=== PATIENT | female | born 1965 | race American Indian/Alaskan Native ===

== ENCOUNTER 2017-06-28 10:04 | Outpatient (CLI) | payer MEDICARE, OTHER ==
--- NOTE | 2017-06-28 15:43 | Cat Scan Report ---
CT FACIAL BONES WITHOUT CONTRAST: HISTORY: Atypical facial pain. COMPARISON: None. TECHNIQUE: Helical CT images with sagittal and coronal CT reformations. FINDINGS: The facial bones are intact. There is no evidence for fracture, bone lesion or bony destruction. The paranasal sinuses are well-aerated. No significant sinus disease. The mastoid air cells and middle ear contents are within normal limits. There is very poor dentition. No periapical tooth abscess is identified. The imaged brain is unremarkable. Facial soft tissues are within normal limits.. No periapical tooth abscess is suspected. IMPRESSION: Unremarkable CT of the facial bones. No evidence for fracture or bony destruction. Poor dentition.
== END 2017-06-28 10:05 | disposition home or self-care (01) ==
LOC: CT 10:04
PROVIDERS: ATTEND Otolaryngology
DX: G50.1 Atypical facial pain (principal); K00.7 Teething syndrome; I10 Essential (primary) hypertension; J45.909 Unspecified asthma, uncomplicated; F41.9 Anxiety disorder, unspecified; F17.200 Nicotine dependence, unspecified, uncomplicated
CPT/HCPCS: 70486

== ENCOUNTER 2018-01-03 13:16 | Emergency (ER) | payer MEDICARE, OTHER ==
[2018-01-03] MEDS ORDERED: ASPIRIN PO ONE (14:03)
[2018-01-03] MEDS ORDERED: TORADOL IV ONE (15:15)
[2018-01-03] MEDS ORDERED: PEPCID IV ONE (15:15)
--- NOTE | 2018-01-03 15:19 | Emergency Department Report ---
ED Chest Pain HPI - General Chief Complaint: Chest Pain Stated Complaint: CHEST PAIN Time Seen by Provider: 01/03/18 15:06 Source: patient, EMS (ems notes not available at time of chart dictation), RN notes reviewed, old records reviewed Mode of arrival: Stretcher Limitations: No Limitations - History of Present Illness Initial Comments: Primary care Dr.: Dr. Farooq Baugh Past medical history: Chronic pain, asthma, hypertension, nerve stimulator This is a 52-year-old female who is unknown to this provider. The patient presents to the ER with the complaints of resolved anterior chest wall pain. Patient reports that she's been coughing recently, and while having a coughing spell, she experienced central chest wall pain, which was sharp in nature, and did not radiate to the back, arms or neck. There is no vomiting or diaphoresis. The patient reports crack consumption 48 hours ago for recreational purposes. She is currently on estradiol for hysterectomy which was performed remotely, and she denies recent aspirin ingestion. She otherwise denies DVT, pulmonary embolus risk factors. She reports shortness of breath while coughing, otherwise does not have shortness of breath at this time. No recent cardiac risk stratification that she is aware of. She thinks her pain started at 10:00 in the morning. She's been pain free for hours. MD Complaint: chest pain -: Sudden Onset: other (see history of present illness) Pain Location: other (anterior chest wall) Pain Radiation: none Severity scale (0 -10): 7 Consistency: now resolved Improves With: rest Worsens With: palpation Other Symptoms: cough Treatments Prior to Arrival: other (given nitroglycerin, aspirin by EMS prior to arrival) - Related Data On Oral Contraceptives: Yes Home Medications Medication Instructions Recorded Confirmed Last Taken Amlodipine Besylate [Norvasc] 10 mg PO DAILY 03/02/13 05/07/14 05/06/14 Cyclobenzaprine [Flexeril] 10 mg PO TID PRN 03/02/13 05/07/14 05/06/14 Estrogens, Conjugated [Premarin] 1.25 mg PO QDAY 03/02/13 05/07/14 05/06/14 Loratadine [Claritin RAPDIS] 10 mg PO QDAY 03/02/13 05/07/14 05/06/14 Albuterol Sulfate [Proventil HFA] 1 puff IH DAILY 04/29/14 05/07/14 05/06/14 Citalopram [celeXA] 10 mg PO HS 04/29/14 05/07/14 05/06/14 Fluticasone/Salmeterol [Advair 1 puff IH BID 04/29/14 05/07/14 05/06/14 Diskus 100-50 mcg] lamoTRIgine [Lamotrigine ER] 100 mg PO DAILY 04/29/14 05/07/14 05/06/14 Previous Rx's Medication Instructions Recorded Last Taken Type traMADol [Ultram 50 MG tab] 50 mg PO Q4HR PRN #20 tablet 04/06/16 Unknown Rx Aspirin [Aspirin BABY CHEW TAB] 81 mg PO QDAY #30 tab.chew 01/03/18 Unknown Rx Allergies Allergy/AdvReac Type Severity Reaction Status Date / Time acetaminophen [From Percocet] Allergy Rash Verified 03/02/13 10:43 adhesive tape Allergy Rash Unverified 06/28/17 10:05 Latex, Natural Rubber Allergy Rash Verified 03/02/13 10:43 oxycodone HCl [From Percocet] Allergy Rash Verified 03/02/13 10:43 Heart Score - HEART Score History: Slightly suspicious EKG: Non-specific Age: 45-65 Risk factors: 1-2 risk factors Troponin: < normal limit HEART Score: 3 - Critical Actions Critical Actions: 0-3 pts:0.9-1.7%risk of adverse cardiac event.Candidate for discharge ED Review of Systems ROS: Stated complaint: CHEST PAIN Other details as noted in HPI Comment: All other systems reviewed and negative Constitutional: denies: fever, malaise Eyes: denies: vision change ENT: congestion Respiratory: cough, shortness of breath. denies: wheezing Cardiovascular: chest pain. denies: syncope Endocrine: no symptoms reported Gastrointestinal: denies: abdominal pain, nausea, vomiting Genitourinary: denies: discharge Musculoskeletal: back pain (endorses chronic back pain) Neurological: denies: paresthesias Psychiatric: anxiety ED Past Medical Hx - Past Medical History Hx Hypertension: Yes Hx Sickle Cell Disease: Yes (trait) Hx Psychiatric Treatment: Yes Hx Asthma: Yes Additional medical history: chronic pain - Surgical History Additional Surgical History: left buttick, nerve stimulator implant. L4-5, and S1 fusion - Social History Smoking Status: Current Every Day Smoker - Medications Home Medications: Home Medications Medication Instructions Recorded Confirmed Last Taken Type Amlodipine Besylate [Norvasc] 10 mg PO DAILY 03/02/13 05/07/14 05/06/14 History Cyclobenzaprine [Flexeril] 10 mg PO TID PRN 03/02/13 05/07/14 05/06/14 History Estrogens, Conjugated [Premarin] 1.25 mg PO QDAY 03/02/13 05/07/14 05/06/14 History Loratadine [Claritin RAPDIS] 10 mg PO QDAY 03/02/13 05/07/14 05/06/14 History Albuterol Sulfate [Proventil HFA] 1 puff IH DAILY 04/29/14 05/07/14 05/06/14 History Citalopram [celeXA] 10 mg PO HS 04/29/14 05/07/14 05/06/14 History Fluticasone/Salmeterol [Advair 1 puff IH BID 04/29/14 05/07/14 05/06/14 History Diskus 100-50 mcg] lamoTRIgine [Lamotrigine ER] 100 mg PO DAILY 04/29/14 05/07/14 05/06/14 History traMADol [Ultram 50 MG tab] 50 mg PO Q4HR PRN #20 tablet 04/06/16 Unknown Rx Aspirin [Aspirin BABY CHEW TAB] 81 mg PO QDAY #30 tab.chew 01/03/18 Unknown Rx ED Physical Exam - General Limitations: No Limitations General appearance: alert, in no apparent distress - Head Head exam: Present: atraumatic, normocephalic - Eye Eye exam: Present: normal appearance, EOMI. Absent: nystagmus - ENT ENT exam: Present: normal exam, normal orophraynx, mucous membranes moist - Neck Neck exam: Present: normal inspection, full ROM - Respiratory Respiratory exam: Present: normal lung sounds bilaterally, chest wall tenderness. Absent: respiratory distress - Cardiovascular Cardiovascular Exam: Present: regular rate, normal rhythm, normal heart sounds. Absent: bradycardia, tachycardia, irregular rhythm, systolic murmur, diastolic murmur, rubs, gallop - GI/Abdominal GI/Abdominal exam: Present: soft, normal bowel sounds. Absent: distended, tenderness, guarding, rebound, rigid, pulsatile mass - Extremities Exam Extremities exam: Present: normal inspection, full ROM, normal capillary refill , other (there is no palpable cord. There is a negative Homans sign.). Absent : tenderness, pedal edema, joint swelling, calf tenderness - Back Exam Back exam: Present: normal inspection, full ROM. Absent: tenderness, CVA tenderness (R), paraspinal tenderness, vertebral tenderness - Neurological Exam Neurological exam: Present: alert, oriented X3, CN II-XII intact, normal gait, other (Extraocular movements intact. Tongue midline. No facial droop. Facial sensation intact to light touch in the V1, V2, V3 distribution bilaterally. 5 and 5 strength in 4 extremities.. Sensation is intact to light touch in 4 extremities.). Absent: motor sensory deficit - Psychiatric Psychiatric exam: Present: anxious - Skin Skin exam: Present: warm, dry, intact, normal color. Absent: rash ED Course Vital Signs 01/03/18 01/03/18 01/03/18 14:20 14:30 14:33 Temperature 98.7 F Pulse Rate 76 75 79 Respiratory 16 16 13 Rate Blood Pressure 85/48 Blood Pressure 91/66 97/66 [Left] O2 Sat by Pulse 100 100 100 Oximetry 01/03/18 01/03/18 01/03/18 14:36 14:40 14:48 Temperature Pulse Rate 82 81 Respiratory 15 14 13 Rate Blood Pressure 85/48 95/65 Blood Pressure [Left] O2 Sat by Pulse 99 100 Oximetry 01/03/18 01/03/18 01/03/18 15:00 15:30 16:00 Temperature Pulse Rate 78 93 H 91 H Respiratory 13 30 H 19 Rate Blood Pressure 98/66 98/66 107/67 Blood Pressure [Left] O2 Sat by Pulse 100 99 100 Oximetry 01/03/18 01/03/18 16:30 17:04 Temperature Pulse Rate 92 H 91 H Respiratory 20 22 Rate Blood Pressure 106/73 95/67 Blood Pressure [Left] O2 Sat by Pulse 100 100 Oximetry - Reevaluation(s) Reevaluation #1: 01/03/18 18:02 Patient is resting comfortably, no distress, patient will be discharged at this time, she can follow up with outpatient cardiology to complete her cardiac risk stratification. CARLOS ENRIQUE score - Carlos Enrique Score Age > 65: (0) No Aspirin use within the Past 7 Days: (0) No 3 or more CAD Risk Factors: (0) No 2 or more Angina events in past 24 hrs: (0) No Known CAD with more than 50% Stenosis: (0) No Elevated Cardiac Markers: (0) No ST Deviation Greater than 0.5mm: (0) No CARLOS ENRIQUE Score: 0 ED Medical Decision Making - Lab Data Result diagrams: 01/03/18 15:16 01/03/18 15:16 Vital Signs 01/03/18 01/03/18 01/03/18 14:20 14:30 14:33 Temperature 98.7 F Pulse Rate 76 75 79 Respiratory 16 16 13 Rate Blood Pressure 85/48 Blood Pressure 91/66 97/66 [Left] O2 Sat by Pulse 100 100 100 Oximetry 01/03/18 01/03/18 01/03/18 14:36 14:40 14:48 Temperature Pulse Rate 82 81 Respiratory 15 14 13 Rate Blood Pressure 85/48 95/65 Blood Pressure [Left] O2 Sat by Pulse 99 100 Oximetry 01/03/18 01/03/18 01/03/18 15:00 15:30 16:00 Temperature Pulse Rate 78 93 H 91 H Respiratory 13 30 H 19 Rate Blood Pressure 98/66 98/66 107/67 Blood Pressure [Left] O2 Sat by Pulse 100 99 100 Oximetry 01/03/18 01/03/18 16:30 17:04 Temperature Pulse Rate 92 H 91 H Respiratory 20 22 Rate Blood Pressure 106/73 95/67 Blood Pressure [Left] O2 Sat by Pulse 100 100 Oximetry Lab Results 01/03/18 01/03/18 01/03/18 Range/Units 15:16 15:16 15:20 WBC 6.6 (4.5-11.0) K/mm3 RBC 4.44 (3.65-5.03) M/mm3 Hgb 13.0 (10.1-14.3) gm/dl Hct 38.5 (30.3-42.9) % MCV 87 (79-97) fl MCH 29 (28-32) pg MCHC 34 (30-34) % RDW 13.8 (13.2-15.2) % Plt Count 208 (140-440) K/mm3 Lymph % (Auto) 22.9 (13.4-35.0) % Cache % (Auto) 8.6 H (0.0-7.3) % Eos % (Auto) 0.2 (0.0-4.3) % Baso % (Auto) 0.4 (0.0-1.8) % Lymph # 1.5 (1.2-5.4) K/mm3 Cache # 0.6 (0.0-0.8) K/mm3 Eos # 0.0 (0.0-0.4) K/mm3 Baso # 0.0 (0.0-0.1) K/mm3 Seg Neutrophils % 67.9 (40.0-70.0) % Seg Neutrophils # 4.5 (1.8-7.7) K/mm3 PT 13.1 (12.2-14.9) Sec. INR 0.95 (0.87-1.13) APTT 32.9 (24.2-36.6) Sec. D-Dimer 199.87 (0-234) ng/mlDDU Magnesium (1.7-2.3) mg/dL Total Creatine Kinase (30-135) units/L Troponin T < 0.010 (0.00-0.029) ng/mL Salicylates (2.8-20.0) mg/dL Acetaminophen (10.0-30.0) ug/mL 01/03/18 01/03/18 01/03/18 Range/Units 15:20 15:20 15:20 WBC (4.5-11.0) K/mm3 RBC (3.65-5.03) M/mm3 Hgb (10.1-14.3) gm/dl Hct (30.3-42.9) % MCV (79-97) fl MCH (28-32) pg MCHC (30-34) % RDW (13.2-15.2) % Plt Count (140-440) K/mm3 Lymph % (Auto) (13.4-35.0) % Cache % (Auto) (0.0-7.3) % Eos % (Auto) (0.0-4.3) % Baso % (Auto) (0.0-1.8) % Lymph # (1.2-5.4) K/mm3 Cache # (0.0-0.8) K/mm3 Eos # (0.0-0.4) K/mm3 Baso # (0.0-0.1) K/mm3 Seg Neutrophils % (40.0-70.0) % Seg Neutrophils # (1.8-7.7) K/mm3 PT (12.2-14.9) Sec. INR (0.87-1.13) APTT (24.2-36.6) Sec. D-Dimer (0-234) ng/mlDDU Magnesium 1.90 (1.7-2.3) mg/dL Total Creatine Kinase 70 (30-135) units/L Troponin T (0.00-0.029) ng/mL Salicylates < 0.3 L (2.8-20.0) mg/dL Acetaminophen < 5.0 L (10.0-30.0) ug/mL - EKG Data -: EKG Interpreted by Me - EKG Data When compared to previous EKG there are: previous EKG unavailable 01/03/18 17:28 EKG interpretation is limited by artifact from sacral stimulator for pain 79 bpm, sinus, normal axis, QTC 445 ms, not a STEMI. Repeat EKG appears to be unchanged. - Radiology Data Radiology results: image reviewed interpreted by me: X-ray of the chest, interpreted by me, no acute disease - Medical Decision Making Differential diagnosis, including but not limited to: Bronchitis, pneumonia, costochondritis, acute coronary syndrome, pulmonary embolus, anxiety Assessment and plan: 52-year-old female, low risk by well's criteria with a negative d-dimer, on estradiol, otherwise does not have pulmonary embolus or DVT risk factors, with a normal chest x-ray, unchanged EKG 2, reproducible chest wall pain, not having chest pain currently, negative troponin 1, low risk by CARLOS ENRIQUE score, low risk by heart score, in no distress. Patient is at low risk for major adverse cardiac event. She reports she is reliable to follow up with an outpatient primary care doctor or river crossing supervisor to complete her acute coronary syndrome risk stratification. Her pain was improved after nonnarcotic medication. She reports recreational crack ingestion a few days ago, however she is clinically sober at this time, and his serum toxicology screen was negative for Tylenol or aspirin toxicity. Critical care attestation.: If time is entered above; I have spent that time in minutes in the direct care of this critically ill patient, excluding procedure time. ED Disposition Clinical Impression: Chest wall pain Disposition: DC-01 TO HOME OR SELFCARE Is pt being admited?: No Does the pt Need Aspirin: No Condition: Stable Instructions: Chest Pain (ED), Costochondritis (ED) Additional Instructions: Continue outpatient medications. Follow up with the listed cardiology groups or your own private river crossing supervisor within the next 3 days. Avoid consumption of crack, cocaine, recreational drugs are dangerous and bed for the patient's health. Return to the ER right away with new pain, worsening pain, migration of pain, fevers, chills, lethargy, irritability, projectile vomiting, change in mental status, confusion, inability to tolerate liquid feeds. Prescriptions: Aspirin [Aspirin BABY CHEW TAB] 81 mg PO QDAY #30 tab.chew Referrals: PRIMARY CARE, [Primary Care Provider] - 3-5 Days [facility] [Provider Group] - 3-5 Days [facility] [Provider Group] - 3-5 Days
[2018-01-03 15:31] LABS: Basophils % (Auto) 0.4 % (0.0-1.8); Eosinophils % (Auto) 0.2 % (0.0-4.3); Hematocrit 38.5 % (30.3-42.9); Lymphocytes # (Auto) 1.5 K/mm3 (1.2-5.4); Lymphocytes % (Auto) 22.9 % (13.4-35.0); Mean Corpuscular HGB Conc 34 % (30-34); Mean Corpuscular Hemoglobin 29 pg (28-32); Mean Corpuscular Volume 87 fl (79-97); Monocytes # (Auto) 0.6 K/mm3 (0.0-0.8); Monocytes % (Auto) 8.6 % (0.0-7.3); Platelet Count 208 K/mm3 (140-440); Red Blood Count 4.44 M/mm3 (3.65-5.03); Red Cell Distribution Width 13.8 % (13.2-15.2)
[2018-01-03 15:41] LABS: INR 0.95 (0.87-1.13)
[2018-01-03 15:42] LABS: Partial Thromboplastin Time 32.9 Sec. (24.2-36.6)
[2018-01-03 17:16] VITALS: BP 95/67
[2018-01-03 17:36] LABS: BUN/Creatinine Ratio 15; Blood Urea Nitrogen 9 mg/dL (7-17); Calcium 8.9 mg/dL (8.4-10.2); Hemolysis Index 9
--- NOTE | 2018-01-03 18:01 | XRay Report ---
FINAL REPORT PROCEDURE: XR CHEST ROUTINE 2V TECHNIQUE: PA and lateral chest radiographs were obtained. CPT 52486 HISTORY: Chest pain. COMPARISON: No prior studies are available for comparison. FINDINGS: Heart: Normal. Mediastinum/Vessels: Normal. Lungs/Pleural space: Normal. Bony thorax: No acute osseous abnormality. Intrathecal leads with tips at the T7-8 level. Other: IMPRESSION: No radiographic evidence of acute cardiopulmonary disease..
== END 2018-01-03 18:03 | disposition home or self-care (01) ==
LOC: ED 13:16
DX: R07.89 Other chest pain (principal); I10 Essential (primary) hypertension; J45.909 Unspecified asthma, uncomplicated; F17.200 Nicotine dependence, unspecified, uncomplicated; Z88.6 Allergy status to analgesic agent; Z91.040 Latex allergy status; Z91.048 Other nonmedicinal substance allergy status
CPT/HCPCS: 36415; 71046; 80048; 82550; 83735; 84484; 85025; 85379; 85610; 85730; 93005; 93010; 96374; 96375; 99285; G0480; J1885; 80320

== ENCOUNTER 2019-06-04 16:59 | Emergency (ER) | payer MEDICARE, OTHER ==
--- NOTE | 2019-06-04 17:29 | Emergency Department Report ---
Blank Doc - Documentation Documentation: This is a 53-year-old female that presents with manic bipolar. Stated has been out of her medications for 4 months. Stated is possible for SI. This initial assessment/diagnostic orders/clinical plan/treatment(s) is/are subject to change based on patient's health status, clinical progression and re- assessment by fellow clinical providers in the ED. Further treatment and workup at subsequent clinical providers discretion. Patient/guardians urged not to elope from the ED as their condition may be serious if not clinically assessed and managed. Initial orders include: 1- Patient sent to MAIN ED for further evaluation and treatment 2- director of market intelligence was notified to have patient be brought back [facility]. 3- RN was notified to keep patient as close range and observation until room available 4- Patient presents with substantial risk of imminent harm to self, appears to be so unable to care for his/her own physical health and safety as to create an imminently life-endangering crisis, and has committed/expressed life endangering crisis to self. Due to this and other complaints, patient is put on psych hold.
[2019-06-04 18:09] LABS: Amphetamine Screen,Urine PRESUMPTIVE NEGATIVE; Bacteria,Urine 1+ /HPF (Negative); Benzodiazepines Screen,Urine PRESUMPTIVE NEGATIVE; Bilirubin,Urine NEG (Negative); Blood,Urine NEG (Negative); Cannabinoid Screen,Urine PRESUMPTIVE NEGATIVE; Cocaine Screen,Urine PRESUMPTIVE NEGATIVE; Color,Urine Yellow (Yellow); Methadone Screen,Urine PRESUMPTIVE NEGATIVE; Opiate Screen,Urine PRESUMPTIVE NEGATIVE; Protein,Urine <15 mg/dL mg/dL (Negative)
[2019-06-04 18:28] LABS: Basophils % (Auto) 0.5 % (0.0-1.8); Eosinophils # (Auto) 0.1 K/mm3 (0.0-0.4); Eosinophils % (Auto) 1.5 % (0.0-4.3); Hematocrit 39.4 % (30.3-42.9); Hemoglobin 12.9 gm/dl (10.1-14.3); Lymphocytes # (Auto) 1.8 K/mm3 (1.2-5.4); Lymphocytes % (Auto) 41.6 % (13.4-35.0); Mean Corpuscular HGB Conc 33 % (30-34); Mean Corpuscular Volume 89 fl (79-97); Monocytes # (Auto) 0.2 K/mm3 (0.0-0.8); Monocytes % (Auto) 5.1 % (0.0-7.3); Platelet Count 195 K/mm3 (140-440); Red Blood Count 4.43 M/mm3 (3.65-5.03); Red Cell Distribution Width 13.8 % (13.2-15.2)
[2019-06-04 18:48] LABS: Alanine Aminotransferase 12 units/L (7-56); Albumin 4.4 g/dL (3.9-5); BUN/Creatinine Ratio 14; Blood Urea Nitrogen 10 mg/dL (7-17); Calcium 9.1 mg/dL (8.4-10.2); Hemolysis Index 14
--- NOTE | 2019-06-04 20:06 | Emergency Department Report ---
ED General Adult HPI - General Chief complaint: Psych Stated complaint: MH EVAL Time Seen by Provider: 06/04/19 17:28 Source: patient Mode of arrival: Ambulatory Limitations: No Limitations - History of Present Illness Initial comments: Patient presents to the emergency department the chief complaint of having a manic state. Patient states she has a history of bipolar and has not taken meds in over 2-1/2 months. Patient states she feels very restless and anxious. Patient also complains of having thoughts of hurting other people but denies wanting to harm herself. Patient has no other complaints. -: unknown Consistency: constant Improves with: none Worsens with: none Associated Symptoms: denies other symptoms Treatments Prior to Arrival: none - Related Data Home Medications Medication Instructions Recorded Confirmed Last Taken Amlodipine Besylate [Norvasc] 10 mg PO DAILY 03/02/13 05/07/14 05/06/14 Cyclobenzaprine [Flexeril] 10 mg PO TID PRN 03/02/13 05/07/14 05/06/14 Estrogens, Conjugated (Nf) 1.25 mg PO QDAY 03/02/13 05/07/14 05/06/14 [Premarin] Loratadine [Claritin RAPDIS] 10 mg PO QDAY 03/02/13 05/07/14 05/06/14 Albuterol Sulfate [Proventil HFA] 1 puff IH DAILY 04/29/14 05/07/14 05/06/14 Citalopram [celeXA] 10 mg PO HS 04/29/14 05/07/14 05/06/14 Fluticasone/Salmeterol [Advair 1 puff IH BID 04/29/14 05/07/14 05/06/14 Diskus 100-50 mcg] lamoTRIgine [Lamotrigine ER] 100 mg PO DAILY 04/29/14 05/07/14 05/06/14 Previous Rx's Medication Instructions Recorded Last Taken Type traMADoL [Ultram 50 MG tab] 50 mg PO Q4HR PRN #20 tablet 04/06/16 Unknown Rx Aspirin [Aspirin BABY CHEW TAB] 81 mg PO QDAY #30 tab.chew 01/03/18 Unknown Rx Allergies Allergy/AdvReac Type Severity Reaction Status Date / Time adhesive tape Allergy Rash Unverified 06/28/17 10:05 Latex, Natural Rubber Allergy Rash Verified 03/02/13 10:43 oxycodone HCl [From Percocet] Allergy Rash Verified 03/02/13 10:43 ED Review of Systems ROS: Stated complaint: MH EVAL Other details as noted in HPI Constitutional: denies: chills, fever Eyes: denies: eye pain, eye discharge, vision change ENT: denies: ear pain, throat pain Respiratory: denies: cough, shortness of breath, wheezing Cardiovascular: denies: chest pain, palpitations Endocrine: no symptoms reported Gastrointestinal: denies: abdominal pain, nausea, diarrhea Genitourinary: denies: urgency, dysuria, discharge Musculoskeletal: denies: back pain, joint swelling, arthralgia Skin: denies: rash, lesions Neurological: denies: headache, weakness, paresthesias Psychiatric: suicidal thoughts. denies: anxiety, depression, auditory hallucinations, visual hallucinations, homicidal thoughts Hematological/Lymphatic: denies: easy bleeding, easy bruising ED Past Medical Hx - Past Medical History Previous Medical History?: Yes Hx Hypertension: Yes Hx Sickle Cell Disease: Yes (trait) Hx Psychiatric Treatment: Yes (bipolar/schizo) Hx Asthma: Yes Additional medical history: chronic pain - Surgical History Past Surgical History?: Yes Additional Surgical History: left buttick, nerve stimulator implant. L4-5, and S1 fusion - Social History Smoking Status: Current Every Day Smoker Substance Use Type: Alcohol, Cocaine - Medications Home Medications: Home Medications Medication Instructions Recorded Confirmed Last Taken Type Amlodipine Besylate [Norvasc] 10 mg PO DAILY 03/02/13 05/07/14 05/06/14 History Cyclobenzaprine [Flexeril] 10 mg PO TID PRN 03/02/13 05/07/14 05/06/14 History Estrogens, Conjugated (Nf) 1.25 mg PO QDAY 03/02/13 05/07/14 05/06/14 History [Premarin] Loratadine [Claritin RAPDIS] 10 mg PO QDAY 03/02/13 05/07/14 05/06/14 History Albuterol Sulfate [Proventil HFA] 1 puff IH DAILY 04/29/14 05/07/14 05/06/14 History Citalopram [celeXA] 10 mg PO HS 04/29/14 05/07/14 05/06/14 History Fluticasone/Salmeterol [Advair 1 puff IH BID 04/29/14 05/07/14 05/06/14 History Diskus 100-50 mcg] lamoTRIgine [Lamotrigine ER] 100 mg PO DAILY 04/29/14 05/07/14 05/06/14 History traMADoL [Ultram 50 MG tab] 50 mg PO Q4HR PRN #20 tablet 04/06/16 Unknown Rx Aspirin [Aspirin BABY CHEW TAB] 81 mg PO QDAY #30 tab.chew 01/03/18 Unknown Rx ED Physical Exam - General Limitations: No Limitations General appearance: alert, in no apparent distress, anxious, other (the patient appears to be in a manic state; patient's hyperverbal and I able to sit still. ) - Head Head exam: Present: atraumatic, normocephalic - Eye Eye exam: Present: normal appearance - ENT ENT exam: Present: mucous membranes moist - Neck Neck exam: Present: normal inspection - Respiratory Respiratory exam: Present: normal lung sounds bilaterally. Absent: respiratory distress - Cardiovascular Cardiovascular Exam: Present: regular rate, normal rhythm. Absent: systolic murmur, diastolic murmur, rubs, gallop - GI/Abdominal GI/Abdominal exam: Present: soft, normal bowel sounds. Absent: distended, tenderness - Extremities Exam Extremities exam: Present: normal inspection - Back Exam Back exam: Present: normal inspection - Neurological Exam Neurological exam: Present: alert, oriented X3, CN II-XII intact. Absent: motor sensory deficit - Psychiatric Psychiatric exam: Present: normal affect, normal mood, homicidal ideation. Absent: suicidal ideation - Skin Skin exam: Present: warm, dry, intact, normal color. Absent: rash ED Course Vital Signs 06/04/19 06/04/19 06/05/19 17:27 20:25 01:05 Temperature 98.5 F 97.9 F 97.5 F L Pulse Rate 109 H 102 H 100 H Respiratory 18 18 18 Rate Blood Pressure 111/74 Blood Pressure 97/59 103/69 [Right] O2 Sat by Pulse 100 100 100 Oximetry ED Medical Decision Making - Lab Data Result diagrams: 06/04/19 17:51 06/04/19 17:51 Lab Results 06/04/19 06/04/19 06/04/19 Range/Units 17:51 17:51 17:51 WBC 4.4 L (4.5-11.0) K/mm3 RBC 4.43 (3.65-5.03) M/mm3 Hgb 12.9 (10.1-14.3) gm/dl Hct 39.4 (30.3-42.9) % MCV 89 (79-97) fl MCH 29 (28-32) pg MCHC 33 (30-34) % RDW 13.8 (13.2-15.2) % Plt Count 195 (140-440) K/mm3 Lymph % (Auto) 41.6 H (13.4-35.0) % [place] % (Auto) 5.1 (0.0-7.3) % Eos % (Auto) 1.5 (0.0-4.3) % Baso % (Auto) 0.5 (0.0-1.8) % Lymph # 1.8 (1.2-5.4) K/mm3 [place] # 0.2 (0.0-0.8) K/mm3 Eos # 0.1 (0.0-0.4) K/mm3 Baso # 0.0 (0.0-0.1) K/mm3 Seg Neutrophils % 51.3 (40.0-70.0) % Seg Neutrophils # 2.2 (1.8-7.7) K/mm3 Sodium 143 (137-145) mmol/L Potassium 3.6 (3.6-5.0) mmol/L Chloride 102.9 (98-107) mmol/L Carbon Dioxide 24 (22-30) mmol/L Anion Gap 20 mmol/L BUN 10 (7-17) mg/dL Creatinine 0.7 (0.7-1.2) mg/dL Estimated GFR > 60 ml/min BUN/Creatinine Ratio 14 % Glucose 117 H (65-100) mg/dL Calcium 9.1 (8.4-10.2) mg/dL Total Bilirubin 0.20 (0.1-1.2) mg/dL AST 13 (5-40) units/L ALT 12 (7-56) units/L Alkaline Phosphatase 59 (35-129) units/L Total Protein 7.1 (6.3-8.2) g/dL Albumin 4.4 (3.9-5) g/dL Albumin/Globulin Ratio 1.6 % Urine Color (Yellow) Urine Turbidity (Clear) Urine pH (5.0-7.0) Ur Specific [place] (1.003-1.030) Urine Protein (Negative) mg/dL Urine Glucose (UA) (Negative) mg/dL Urine Ketones (Negative) mg/dL Urine Blood (Negative) Urine Nitrite (Negative) Urine Bilirubin (Negative) Urine Urobilinogen (<2.0) mg/dL Ur Leukocyte Esterase (Negative) Urine WBC (Auto) (0.0-6.0) /HPF Urine RBC (Auto) (0.0-6.0) /HPF U Epithel Cells (Auto) (0-13.0) /HPF Urine Bacteria (Auto) (Negative) /HPF Salicylates < 0.3 L (2.8-20.0) mg/dL Urine Opiates Screen Urine Methadone Screen Acetaminophen (10.0-30.0) ug/mL Ur Barbiturates Screen Ur Phencyclidine Scrn Ur Amphetamines Screen U Benzodiazepines Scrn Urine Cocaine Screen U Marijuana (THC) Screen Drugs of Abuse Note Plasma/Serum Alcohol (0-0.07) % 06/04/19 06/04/19 06/04/19 Range/Units 17:51 17:51 Unknown WBC (4.5-11.0) K/mm3 RBC (3.65-5.03) M/mm3 Hgb (10.1-14.3) gm/dl Hct (30.3-42.9) % MCV (79-97) fl MCH (28-32) pg MCHC (30-34) % RDW (13.2-15.2) % Plt Count (140-440) K/mm3 Lymph % (Auto) (13.4-35.0) % [place] % (Auto) (0.0-7.3) % Eos % (Auto) (0.0-4.3) % Baso % (Auto) (0.0-1.8) % Lymph # (1.2-5.4) K/mm3 [place] # (0.0-0.8) K/mm3 Eos # (0.0-0.4) K/mm3 Baso # (0.0-0.1) K/mm3 Seg Neutrophils % (40.0-70.0) % Seg Neutrophils # (1.8-7.7) K/mm3 Sodium (137-145) mmol/L Potassium (3.6-5.0) mmol/L Chloride (98-107) mmol/L Carbon Dioxide (22-30) mmol/L Anion Gap mmol/L BUN (7-17) mg/dL Creatinine (0.7-1.2) mg/dL Estimated GFR ml/min BUN/Creatinine Ratio % Glucose (65-100) mg/dL Calcium (8.4-10.2) mg/dL Total Bilirubin (0.1-1.2) mg/dL AST (5-40) units/L ALT (7-56) units/L Alkaline Phosphatase (35-129) units/L Total Protein (6.3-8.2) g/dL Albumin (3.9-5) g/dL Albumin/Globulin Ratio % Urine Color Yellow (Yellow) Urine Turbidity Clear (Clear) Urine pH 6.0 (5.0-7.0) Ur Specific [place] 1.017 (1.003-1.030) Urine Protein <15 mg/dl (Negative) mg/dL Urine Glucose (UA) Neg (Negative) mg/dL Urine Ketones Neg (Negative) mg/dL Urine Blood Neg (Negative) Urine Nitrite Neg (Negative) Urine Bilirubin Neg (Negative) Urine Urobilinogen 2.0 (<2.0) mg/dL Ur Leukocyte Esterase Neg (Negative) Urine WBC (Auto) 1.0 (0.0-6.0) /HPF Urine RBC (Auto) 4.0 (0.0-6.0) /HPF U Epithel Cells (Auto) 6.0 (0-13.0) /HPF Urine Bacteria (Auto) 1+ (Negative) /HPF Salicylates (2.8-20.0) mg/dL Urine Opiates Screen Urine Methadone Screen Acetaminophen 9.1 L (10.0-30.0) ug/mL Ur Barbiturates Screen Ur Phencyclidine Scrn Ur Amphetamines Screen U Benzodiazepines Scrn Urine Cocaine Screen U Marijuana (THC) Screen Drugs of Abuse Note Plasma/Serum Alcohol < 0.01 (0-0.07) % 06/04/19 Range/Units Unknown WBC (4.5-11.0) K/mm3 RBC (3.65-5.03) M/mm3 Hgb (10.1-14.3) gm/dl Hct (30.3-42.9) % MCV (79-97) fl MCH (28-32) pg MCHC (30-34) % RDW (13.2-15.2) % Plt Count (140-440) K/mm3 Lymph % (Auto) (13.4-35.0) % [place] % (Auto) (0.0-7.3) % Eos % (Auto) (0.0-4.3) % Baso % (Auto) (0.0-1.8) % Lymph # (1.2-5.4) K/mm3 [place] # (0.0-0.8) K/mm3 Eos # (0.0-0.4) K/mm3 Baso # (0.0-0.1) K/mm3 Seg Neutrophils % (40.0-70.0) % Seg Neutrophils # (1.8-7.7) K/mm3 Sodium (137-145) mmol/L Potassium (3.6-5.0) mmol/L Chloride (98-107) mmol/L Carbon Dioxide (22-30) mmol/L Anion Gap mmol/L BUN (7-17) mg/dL Creatinine (0.7-1.2) mg/dL Estimated GFR ml/min BUN/Creatinine Ratio % Glucose (65-100) mg/dL Calcium (8.4-10.2) mg/dL Total Bilirubin (0.1-1.2) mg/dL AST (5-40) units/L ALT (7-56) units/L Alkaline Phosphatase (35-129) units/L Total Protein (6.3-8.2) g/dL Albumin (3.9-5) g/dL Albumin/Globulin Ratio % Urine Color (Yellow) Urine Turbidity (Clear) Urine pH (5.0-7.0) Ur Specific [place] (1.003-1.030) Urine Protein (Negative) mg/dL Urine Glucose (UA) (Negative) mg/dL Urine Ketones (Negative) mg/dL Urine Blood (Negative) Urine Nitrite (Negative) Urine Bilirubin (Negative) Urine Urobilinogen (<2.0) mg/dL Ur Leukocyte Esterase (Negative) Urine WBC (Auto) (0.0-6.0) /HPF Urine RBC (Auto) (0.0-6.0) /HPF U Epithel Cells (Auto) (0-13.0) /HPF Urine Bacteria (Auto) (Negative) /HPF Salicylates (2.8-20.0) mg/dL Urine Opiates Screen Presumptive negative Urine Methadone Screen Presumptive negative Acetaminophen (10.0-30.0) ug/mL Ur Barbiturates Screen Presumptive negative Ur Phencyclidine Scrn Presumptive negative Ur Amphetamines Screen Presumptive negative U Benzodiazepines Scrn Presumptive negative Urine Cocaine Screen Presumptive negative U Marijuana (THC) Screen Presumptive negative Drugs of Abuse Note Disclamer Plasma/Serum Alcohol (0-0.07) % - Medical Decision Making Medically Cleared awaiting psych consultation Critical care attestation.: If time is entered above; I have spent that time in minutes in the direct care of this critically ill patient, excluding procedure time. ED Disposition Clinical Impression: Homicidal ideations, Bipolar disorder Disposition: [id number]/TX-[id number] PSY HOSP/PSY UNIT Is pt being admited?: No Does the pt Need Aspirin: No Condition: Stable
[2019-06-05] MEDS ORDERED: LORazepam 2 MG TAB ONE (00:54)
[2019-06-05] MEDS ORDERED: LORazepam 1 MG TAB PO ONE (00:55)
[2019-06-05] MEDS ORDERED: ACETAMINOPHEN 500 MG TAB PO ONE (00:55)
[2019-06-05] MEDS ORDERED: ACETAMINOPHEN 500 MG TAB ONE (00:55)
[2019-06-05] MEDS ORDERED: NICOTINE 14 MG/24 HR PATCH TD ONE (01:21)
[2019-06-05 11:26] VITALS: BP 120/78
== END 2019-06-05 11:27 ==
LOC: ED 16:59
DX: R45.850 Homicidal ideations (principal); F31.9 Bipolar disorder, unspecified; I10 Essential (primary) hypertension; D57.1 Sickle-cell disease without crisis; J45.909 Unspecified asthma, uncomplicated; F14.10 Cocaine abuse, uncomplicated; F17.200 Nicotine dependence, unspecified, uncomplicated; Z98.890 Other specified postprocedural states; Z79.899 Other long term (current) drug therapy; Z91.040 Latex allergy status; Z88.8 Allergy status to other drugs, medicaments and biological substances
CPT/HCPCS: 36415; 80053; 80307; 80320; 81001; 85025; G0480

== ENCOUNTER 2019-06-05 09:26 | Inpatient (IN) | payer MEDICARE, OTHER ==
[2019-06-05] MEDS ORDERED: HALOPERIDOL LACTATE 5 MG/1 ML INJ IM PRN (10:33)
[2019-06-05] MEDS ORDERED: LORazepam 2 MG/ML VIAL IM PRN (10:35)
[2019-06-05] MEDS ORDERED: ALBUTEROL 2.5 MG/3 ML NEBU IH PRN (11:06)
[2019-06-05] MEDS: traMADol 50 MG TAB PO PRN (16:53)
[2019-06-05] MEDS: CITALOPRAM 10 MG TAB PO SCH (21:33)
[2019-06-05] MEDS: DOCUSATE SODIUM 100 MG CAP PO SCH ×2 (21:33→21:37)
[2019-06-05] MEDS ORDERED: NON-FORMULARY EACH (Fluticasone/Salmeterol [Advair Diskus 100-50 Mcg] 1 PUFF) IH SCH (22:00)
--- NOTE | 2019-06-06 07:24 | History and Physical Report ---
GP History & Physical - History of Present Illness Date of admission: 06/05/19 Date of Examination: 06/06/19 Reason for Admission: Danger to self, Severe anxiety/depression Chief Complaint: I am in pain, depressed and suicidal History of Present Illness: Patient is a 53 yrs old single, disabled, female with a history of Cocaine & Alcohol use disorder, Schizophrenia, Bipolar disorder, Lupus and chronic pain. She presents with wanting to kill herself. The Patient stated she has Lupus, and is having a really rough time dealing with the changes it is causing to her body. This rough time has caused her to have thoughts of suicide. She has chronic pain in her neck and back, and is not eating or sleeping well. The patient does not hear voices, or feel anyone is trying to harm her, nor does she want to harm anyone else. PAST PSYCHIATRIC HISTORY: The patient has been hospitalized twice for psychiatric care. The last time was 5 years ago and has tried to commit suicide multiple times. The last attempt the patient took a bottle of tranquilizers. The patient stated that her family had a history of psychiatric problems. . The patient stated that she drinks daily as much as she can any time alcohol is available. (Beer, wine, anything etc.) The patient also stated that she smokes crack and uses cocaine. She reports using crack/cocaine 2 weeks prior. PAST MEDICAL/SURGICAL HISTORY Past Medical History: hypertension, other (Bronchial asthma. Chronic pain syndrome, bipolar disorder, sickle cell trait) Past Surgical History: Other (Left buttock nerve stimulator implant, L4-5 and S1 fusion) SOCIAL HISTORY: Single. Disabled. No legal problems Ms. Daniel lives with her fiancee. 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 History of Abuse: No REVIEW OF SYSTEMS Constitutional: Negative for weight loss ENT: Negative for stridor Respiratory: Negative for cough or hemoptysis All other systems reviewed and are negative Legal Status: Voluntary Patient Problems: Current Active Problems Alcohol use disorder, severe, dependence (Acute) Cocaine use disorder, severe, dependence (Acute) Schizoaffective disorder, bipolar type (Acute) Reaction to Hospitalization: Accepting Medications and Allergies Allergies Allergy/AdvReac Type Severity Reaction Status Date / Time adhesive tape Allergy Rash Unverified 06/28/17 10:05 Latex, Natural Rubber Allergy Rash Verified 03/02/13 10:43 oxycodone HCl [From Percocet] Allergy Rash Verified 03/02/13 10:43 Home Medications Medication Instructions Recorded Confirmed Last Taken Type Amlodipine Besylate [Norvasc] 10 mg PO DAILY 03/02/13 06/06/19 05/06/14 History Cyclobenzaprine [Flexeril] 10 mg PO TID PRN 03/02/13 06/06/19 05/06/14 History Estrogens, Conjugated (Nf) 1.25 mg PO QDAY 03/02/13 06/06/19 05/06/14 History [Premarin] Loratadine [Claritin RAPDIS] 10 mg PO QDAY 03/02/13 06/06/19 05/06/14 History Albuterol Sulfate [Proventil HFA] 1 puff IH DAILY 04/29/14 06/06/19 05/06/14 History Citalopram [celeXA] 10 mg PO HS 04/29/14 06/06/19 05/06/14 History Fluticasone/Salmeterol [Advair 1 puff IH BID 04/29/14 06/06/19 05/06/14 History Diskus 100-50 mcg] lamoTRIgine [Lamotrigine ER] 100 mg PO DAILY 04/29/14 06/06/19 05/06/14 History traMADoL [Ultram 50 MG tab] 50 mg PO Q4HR PRN #20 tablet 04/06/16 06/06/19 Unknown Rx Aspirin [Aspirin BABY CHEW TAB] 81 mg PO QDAY #30 tab.chew 01/03/18 06/06/19 Unknown Rx Active Meds: Active Medications Acetaminophen (Tylenol) 1,000 mg PO Q6H PRN PRN Reason: Pain, Mild (1-3) Albuterol (Proventil) 2.5 mg IH Q4HRT PRN PRN Reason: Shortness Of Breath Amlodipine Besylate (Amlodipine) 10 mg PO DAILY [facility] Aspirin (Baby Aspirin) 81 mg PO QDAY [facility] Citalopram Hydrobromide (Celexa) 10 mg PO HS [facility] Last Admin: 06/05/19 21:33 Dose: 10 mg Documented by: Budesonide 0.5 mg/ (Arformoterol Tartrate 15 mcg) 0 mg IH Q12HRT [facility] Cyclobenzaprine HCl (Flexeril) 10 mg PO TID PRN PRN Reason: Pain, Moderate (4-6) Docusate Sodium (Colace) 100 mg PO BID [facility] Last Admin: 06/05/19 21:37 Dose: Not Given Documented by: Haloperidol Lactate (Haldol) 5 mg IM Q6H PRN PRN Reason: Agitation Loratadine (Claritin) 10 mg PO DAILY [facility] Lorazepam (Ativan) 2 mg IM Q6H PRN PRN Reason: Agitation Miscellaneous Medication (Estrogens, Conjugated (Nf)) 1.25 mg PO QDAY [facility] Nicotine (Habitrol) 21 mg TD QDAY [facility] Tramadol HCl (Ultram) 50 mg PO Q4HR PRN PRN Reason: PAIN Last Admin: 06/05/19 16:53 Dose: 50 mg Documented by: Substance History - Substance History Drug Use: cocaine Alcohol Use: Yes Results - Results Labs/Vitals: Laboratory Last Values POC Glucose 104 (70-105) 06/05/19 17:10 Physical Examination - Constitutional General appearance: Present: no acute distress - EENT Eyes: Present: PERRL, EOM intact ENT: hearing intact, dentition normal - Neck Neck: Present: supple, normal ROM - Respiratory Respiratory effort: normal Mental Status Exam - Exam Orientation: time, place, person Affect: depressed, anxious Mood: congruent with affect Thought Process: Intact Perceptions: none Speech: normal rate and pattern Concentration: focused Motor activity: normal Level of consciousness: alert Memory: Intact Sleep Symptoms: Difficulty Falling Asleep Interaction: cooperative Assessment and Plan - Psychiatric problem (1) Schizoaffective disorder, bipolar type Current Visit: Yes Status: Acute (2) Cocaine use disorder, severe, dependence Current Visit: Yes Status: Acute (3) Alcohol use disorder, severe, dependence Current Visit: Yes Status: Acute plan to address problem: Patient will be admitted for inpatient psychiatric evaluation, medication adjustment and close monitoring The patient's behavior, mood, sleep and appetite will be closely monitored. Patient will be enrolled in individual and group therapeutic sessions and encouraged to attend. Patient will be provided with a safe and structured environment. Patient's physical health needs will be addressed by the Hospitalist. Hospitalist Consulted Labs including CBC, CMP, Lipid profile and Hemoglobin A1C ordered Social Assessment will be completed and the Cost Recorder will work with patient and family to ensure a suitable and safe disposition Medication adjustment will be made as clinically indicated Usual Wellness Rastafari/Preservation: - Start Trazodone 50 mg po QHS & 50 mg po QHS PRN between 10 PM & 2 AM for insomnia - Start Melatonin 5 mg po QHS to promote circadian rhythm - Start [place]-3 for brain health, reduce impulsivity, and as adjunctive treatment for mood disorder, continue upon discharge given overall benefits. - Start B1 prophylaxis with 200 mg po for 5 days The patient agreed on the treatment plan, understood the risk, benefit, alternative treatment, potential consequence of no treatment, and gave informed consent. Physician Certification - Certification Statement Physician Certification Statement: This is an acknowledgement statement that MARY DANIEL is a 53 year old F who requires inpatient psychiatric admission for treatment which could reasonably be expected to improve the patient's condition for Estimated period of time patient will need to remain in the hospital: [ ] Plan for post-hospital care: [ ]
[2019-06-06] MEDS ORDERED: BUDESONIDE 0.5 MG, ARFORMOTEROL NEBU 15 MCG IH SCH (08:00)
[2019-06-06] MEDS ORDERED: NON-FORMULARY EACH (Amlodipine Besylate [Norvasc] 10 MG) PO SCH (10:00)
[2019-06-06] MEDS ORDERED: ALBUTEROL 8.5 GM INHALATION IH SCH (10:00)
[2019-06-06] MEDS ORDERED: ESTROGENS CONJUGATED 1.25 MG PO SCH (10:00)
[2019-06-06] MEDS ORDERED: LORATADINE 10 MG PO SCH (10:00)
--- NOTE | 2019-06-06 10:55 | Consultation ---
History of Present Illness - Reason for Consult Consult date: 06/06/19 Med management Requesting physician: NATE RAMAN - History of Present Illness 53-year-old female patient with significant past medical history of bipolar disorder hypertension ,sickle cell trait, chronic pain syndrome, bronchial asthma Was admitted through the emergency room to inpatient [facility] psych unit with history of suicidal thoughts, suicidal ideation. Hospitalist services were consulted for medical management. Patient denies any chest pain or shortness of breath, denies any headache or dizziness Complains of some upper respiratory congestion, denies nausea vomiting or abdominal pain Patient complains of depression and suicidal thoughts Past History Past Medical History: hypertension, other (Bronchial asthma. Chronic pain syndrome, bipolar disorder, sickle cell trait) Past Surgical History: Other (Left buttock nerve stimulator implant, L4-5 and S1 fusion) Social history: smoking. denies: alcohol abuse, prescription drug abuse Family history: no significant family history Medications and Allergies Allergies Allergy/AdvReac Type Severity Reaction Status Date / Time adhesive tape Allergy Rash Unverified 06/28/17 10:05 Latex, Natural Rubber Allergy Rash Verified 03/02/13 10:43 oxycodone HCl [From Percocet] Allergy Rash Verified 03/02/13 10:43 Home Medications Medication Instructions Recorded Confirmed Last Taken Type Amlodipine Besylate [Norvasc] 10 mg PO DAILY 03/02/13 06/06/19 05/06/14 History Cyclobenzaprine [Flexeril] 10 mg PO TID PRN 03/02/13 06/06/19 05/06/14 History Estrogens, Conjugated (Nf) 1.25 mg PO QDAY 03/02/13 06/06/19 05/06/14 History [Premarin] Loratadine [Claritin RAPDIS] 10 mg PO QDAY 03/02/13 06/06/19 05/06/14 History Albuterol Sulfate [Proventil HFA] 1 puff IH DAILY 04/29/14 06/06/19 05/06/14 History Citalopram [celeXA] 10 mg PO HS 04/29/14 06/06/19 05/06/14 History Fluticasone/Salmeterol [Advair 1 puff IH BID 04/29/14 06/06/19 05/06/14 History Diskus 100-50 mcg] lamoTRIgine [Lamotrigine ER] 100 mg PO DAILY 04/29/14 06/06/19 05/06/14 History traMADoL [Ultram 50 MG tab] 50 mg PO Q4HR PRN #20 tablet 04/06/16 06/06/19 Unknown Rx Aspirin [Aspirin BABY CHEW TAB] 81 mg PO QDAY #30 tab.chew 01/03/18 06/06/19 Unknown Rx Active Meds: Active Medications Acetaminophen (Tylenol) 1,000 mg PO Q6H PRN PRN Reason: Pain, Mild (1-3) Albuterol (Proventil) 2.5 mg IH Q4HRT PRN PRN Reason: Shortness Of Breath Amlodipine Besylate (Amlodipine) 10 mg PO DAILY [facility] Aspirin (Baby Aspirin) 81 mg PO QDAY [facility] Citalopram Hydrobromide (Celexa) 10 mg PO HS [facility] Last Admin: 06/05/19 21:33 Dose: 10 mg Documented by: Budesonide 0.5 mg/ (Arformoterol Tartrate 15 mcg) 0 mg IH Q12HRT [facility] Cyclobenzaprine HCl (Flexeril) 10 mg PO TID PRN PRN Reason: Pain, Moderate (4-6) Docusate Sodium (Colace) 100 mg PO BID [facility] Last Admin: 06/05/19 21:37 Dose: Not Given Documented by: Haloperidol Lactate (Haldol) 5 mg IM Q6H PRN PRN Reason: Agitation Lamotrigine (Lamictal) 25 mg PO BID [facility] Loratadine (Claritin) 10 mg PO DAILY [facility] Lorazepam (Ativan) 2 mg IM Q6H PRN PRN Reason: Agitation Miscellaneous Medication (Estrogens, Conjugated (Nf)) 1.25 mg PO QDAY [facility] Nicotine (Habitrol) 21 mg TD QDAY [facility] Tramadol HCl (Ultram) 50 mg PO Q4HR PRN PRN Reason: PAIN Last Admin: 06/05/19 16:53 Dose: 50 mg Documented by: Review of Systems Constitutional: no weight loss, no weight gain Ears, nose, mouth and throat: nasal congestion, other (Upper respiratory symptoms) Cardiovascular: no chest pain, no orthopnea, no palpitations Respiratory: congestion, no cough with sputum, no shortness of breath Gastrointestinal: no abdominal pain, no nausea, no vomiting Genitourinary Female: no flank pain, no dysuria Musculoskeletal: no myalgias, no arthritis Integumentary: no rash, no lesions Neurological: no numbness, no tingling, no seizures Psychiatric: suicidal ideation, depression, no anxiety Endocrine: no cold intolerance, no heat intolerance Hematologic/Lymphatic: no easy bruising, no easy bleeding Allergic/Immunologic: no urticaria, no allergic rhinitis Exam - Constitutional General appearance: Present: no acute distress, well-nourished - EENT Eyes: Present: PERRL, EOM intact - Neck Neck: Present: supple, normal ROM - Respiratory Respiratory effort: normal Respiratory: bilateral: diminished, negative: rales, rhonchi, wheezing - Cardiovascular Rhythm: regular Heart Sounds: Present: S1 & S2 - Extremities Extremities: no ischemia, No edema - Abdominal General gastrointestinal: Present: soft, non-tender, non-distended, normal bowel sounds - Integumentary Integumentary: Present: clear, warm - Musculoskeletal Musculoskeletal: strength equal bilaterally, generalized weakness - Psychiatric Psychiatric: cooperative, depressed - Neurologic Neurologic: moves all extremities Results - Labs CBC & Chem 7: 06/06/19 13:37 06/06/19 13:37 Assessment and Plan --Bipolar disorder/schizophrenia; management per psych --Suicidal ideation; suicide watch Management per psych --Hypertension; moderate control Continue amlodipine, PRN hydralazine --Chronic pain syndrome; pain medications Muscle relaxers --History of bronchial asthma; albuterol inhaler Antihistamines --Ongoing tobacco use; smoking cessation counseling Nicotine patch as needed --DVT prophylaxis; SCDs while resting Monitor closely and adjust management as needed Thank you for this consultation will follow the patient along with you as needed Plan of care reviewed with the patient and her nurse
[2019-06-06] MEDS: amLODIPine 10 MG TAB PO SCH (11:06)
[2019-06-06] MEDS: DOCUSATE SODIUM 100 MG CAP PO SCH ×2 (11:06→21:14)
[2019-06-06] MEDS: LORATADINE (NF) 10 MG TAB PO SCH (11:06)
[2019-06-06] MEDS: ASPIRIN 81 MG TAB CHEW PO SCH (11:07)
[2019-06-06] MEDS: NICOTINE 21 MG/24 HR PATCH TD SCH (11:08)
[2019-06-06] MEDS: traMADol 50 MG TAB PO PRN ×2 (11:37→18:43)
[2019-06-06] MEDS: lamoTRIgine 25 MG TAB PO SCH ×2 (11:59→21:16)
[2019-06-06 13:50] LABS: Basophils % (Auto) 1.2 % (0.0-1.8); Eosinophils % (Auto) 1.3 % (0.0-4.3); Hematocrit 41.8 % (30.3-42.9); Lymphocytes # (Auto) 1.3 K/mm3 (1.2-5.4); Lymphocytes % (Auto) 48.3 % (13.4-35.0); Mean Corpuscular HGB Conc 33 % (30-34); Mean Corpuscular Volume 88 fl (79-97); Monocytes # (Auto) 0.3 K/mm3 (0.0-0.8); Monocytes % (Auto) 9.4 % (0.0-7.3); Platelet Count 209 K/mm3 (140-440); Red Blood Count 4.76 M/mm3 (3.65-5.03); Red Cell Distribution Width 13.9 % (13.2-15.2)
[2019-06-06] MEDS: ACETAMINOPHEN 500 MG TAB PO PRN ×2 (14:05→21:12)
[2019-06-06 14:13] LABS: Alanine Aminotransferase 13 units/L (7-56); Albumin 4.1 g/dL (3.9-5); BUN/Creatinine Ratio 9; Blood Urea Nitrogen 6 mg/dL (7-17); Calcium 9.2 mg/dL (8.4-10.2); Chol/HDL Ratio 2.42 %; HDL Cholesterol 73 mg/dL (40-59); Hemolysis Index 10; LDL Cholesterol,Direct 56 mg/dL (50-130)
[2019-06-06] MEDS: CYCLOBENZAPRINE 10 MG TAB PO PRN (21:14)
[2019-06-06] MEDS: CITALOPRAM 10 MG TAB PO SCH (21:14)
[2019-06-07] MEDS ORDERED: traZODone 50 MG TAB PO PRN (07:40)
[2019-06-07] MEDS: DOCUSATE SODIUM 100 MG CAP PO SCH ×2 (10:30→21:06)
[2019-06-07] MEDS: lamoTRIgine 25 MG TAB PO SCH ×2 (10:30→21:06)
[2019-06-07] MEDS: NICOTINE 21 MG/24 HR PATCH TD SCH (10:30)
[2019-06-07] MEDS: LORATADINE (NF) 10 MG TAB PO SCH (10:30)
[2019-06-07] MEDS: ASPIRIN 81 MG TAB CHEW PO SCH (10:30)
[2019-06-07] MEDS: amLODIPine 10 MG TAB PO SCH (10:31)
[2019-06-07] MEDS: THIAMINE 100 MG TAB PO SCH (10:31)
[2019-06-07] MEDS: ACETAMINOPHEN 500 MG TAB PO PRN ×2 (10:32→21:13)
--- NOTE | 2019-06-07 10:54 | Progress Note ---
Subjective Date of service: 06/07/19 Principal diagnosis: Schizoaffective disorder, bipolar type Subjective Comment: In my morning interview with the patient, the patient stated that she was "not good". The patient reported that she had a bad night with no sleep. She is concerned about her meds affecting her blood count, and is making sure that it is understood that she has Lupus. The patient also stated that she has a sinus infection. Objective - Criteria for Continued Treatment Criteria for Continued Treatment: Improving Level of Functioning, Stablizing Level of Functioning, Improving Emotional/Socia - Mental Status Mental Status: Alert - Objective Observation Participation Level: Full Assessment and Plan - Patient Problems (1) Schizoaffective disorder, bipolar type Current Visit: Yes Status: Acute (2) Cocaine use disorder, severe, dependence Current Visit: Yes Status: Acute (3) Alcohol use disorder, severe, dependence Current Visit: Yes Status: Acute Plan to address problem: Patient will be admitted for inpatient psychiatric evaluation, medication adjustment and close monitoring The patient's behavior, mood, sleep and appetite will be closely monitored. Patient will be enrolled in individual and group therapeutic sessions and encouraged to attend. Patient will be provided with a safe and structured environment. Patient's physical health needs will be addressed by the Hospitalist. Hospitalist Consulted Social Assessment will be completed and the Psychosocial Rehabilitation Counselor will work with patient and family to ensure a suitable and safe disposition Medication adjustment will be made as clinically indicated The patient agreed on the treatment plan, understood the risk, benefit, alternative treatment, potential consequence of no treatment, and gave informed consent. Medications and Allergies Allergies Allergy/AdvReac Type Severity Reaction Status Date / Time adhesive tape Allergy Rash Unverified 06/28/17 10:05 Latex, Natural Rubber Allergy Rash Verified 03/02/13 10:43 oxycodone HCl [From Percocet] Allergy Rash Verified 03/02/13 10:43 Home Medications Medication Instructions Recorded Confirmed Last Taken Type Amlodipine Besylate [Norvasc] 10 mg PO DAILY 03/02/13 06/06/19 05/06/14 History Cyclobenzaprine [Flexeril] 10 mg PO TID PRN 03/02/13 06/06/19 05/06/14 History Estrogens, Conjugated (Nf) 1.25 mg PO QDAY 03/02/13 06/06/19 05/06/14 History [Premarin] Loratadine [Claritin RAPDIS] 10 mg PO QDAY 03/02/13 06/06/19 05/06/14 History Albuterol Sulfate [Proventil HFA] 1 puff IH DAILY 04/29/14 06/06/19 05/06/14 History Citalopram [celeXA] 10 mg PO HS 04/29/14 06/06/19 05/06/14 History Fluticasone/Salmeterol [Advair 1 puff IH BID 04/29/14 06/06/19 05/06/14 History Diskus 100-50 mcg] lamoTRIgine [Lamotrigine ER] 100 mg PO DAILY 04/29/14 06/06/19 05/06/14 History traMADoL [Ultram 50 MG tab] 50 mg PO Q4HR PRN #20 tablet 04/06/16 06/06/19 Unknown Rx Aspirin [Aspirin BABY CHEW TAB] 81 mg PO QDAY #30 tab.chew 01/03/18 06/06/19 U nknown Rx Active Meds: Active Medications Acetaminophen (Tylenol) 1,000 mg PO Q6H PRN PRN Reason: Pain, Mild (1-3) Last Admin: 06/07/19 10:32 Dose: 1,000 mg Documented by: Albuterol (Proventil) 2.5 mg IH Q4HRT PRN PRN Reason: Shortness Of Breath Amlodipine Besylate (Amlodipine) 10 mg PO DAILY [facility] Last Admin: 06/07/19 10:31 Dose: 10 mg Documented by: Aspirin (Baby Aspirin) 81 mg PO QDAY [facility] Last Admin: 06/07/19 10:30 Dose: 81 mg Documented by: Citalopram Hydrobromide (Celexa) 10 mg PO HS [facility] Last Admin: 06/06/19 21:14 Dose: 10 mg Documented by: Budesonide 0.5 mg/ (Arformoterol Tartrate 15 mcg) 0 mg IH Q12HRT [facility] Cyclobenzaprine HCl (Flexeril) 10 mg PO TID PRN PRN Reason: Pain, Moderate (4-6) Last Admin: 06/06/19 21:14 Dose: 10 mg Documented by: Docusate Sodium (Colace) 100 mg PO BID [facility] Last Admin: 06/07/19 10:30 Dose: 100 mg Documented by: Haloperidol Lactate (Haldol) 5 mg IM Q6H PRN PRN Reason: Agitation Lamotrigine (Lamictal) 25 mg PO BID [facility] Last Admin: 06/07/19 10:30 Dose: 25 mg Documented by: Loratadine (Claritin) 10 mg PO DAILY [facility] Last Admin: 06/07/19 10:30 Dose: 10 mg Documented by: Lorazepam (Ativan) 2 mg IM Q6H PRN PRN Reason: Agitation Melatonin (Melatonin) 5 mg PO QHS [facility] Mirtazapine (Remeron) 15 mg PO QHS [facility] Miscellaneous Medication (Estrogens, Conjugated (Nf)) 1.25 mg PO QDAY [facility] Nicotine (Habitrol) 21 mg TD QDAY [facility] Last Admin: 06/06/19 11:08 Dose: 21 mg Documented by: Thiamine HCl (Vitamin B-1) 200 mg PO QDAY [facility] Last Admin: 06/07/19 10:31 Dose: 200 mg Documented by: Tramadol HCl (Ultram) 50 mg PO Q4HR PRN PRN Reason: PAIN Last Admin: 06/06/19 18:43 Dose: 50 mg Documented by: Trazodone HCl (Desyrel) 50 mg PO QHS PRN PRN Reason: Insomnia Results - Results Labs/Vitals: Laboratory Last Values WBC 2.7 K/mm3 (4.5-11.0) L 06/06/19 13:37 RBC 4.76 M/mm3 (3.65-5.03) 06/06/19 13:37 Hgb 14.0 gm/dl (10.1-14.3) 06/06/19 13:37 Hct 41.8 % (30.3-42.9) 06/06/19 13:37 MCV 88 fl (79-97) 06/06/19 13:37 MCH 29 pg (28-32) 06/06/19 13:37 MCHC 33 % (30-34) 06/06/19 13:37 RDW 13.9 % (13.2-15.2) 06/06/19 13:37 Plt Count 209 K/mm3 (140-440) 06/06/19 13:37 Lymph % (Auto) 48.3 % (13.4-35.0) H 06/06/19 13:37 [place] % (Auto) 9.4 % (0.0-7.3) H 06/06/19 13:37 Eos % (Auto) 1.3 % (0.0-4.3) 06/06/19 13:37 Baso % (Auto) 1.2 % (0.0-1.8) 06/06/19 13:37 Lymph # 1.3 K/mm3 (1.2-5.4) 06/06/19 13:37 [place] # 0.3 K/mm3 (0.0-0.8) 06/06/19 13:37 Eos # 0.0 K/mm3 (0.0-0.4) 06/06/19 13:37 Baso # 0.0 K/mm3 (0.0-0.1) 06/06/19 13:37 Seg Neutrophils % 39.8 % (40.0-70.0) L 06/06/19 13:37 Seg Neutrophils # 1.1 K/mm3 (1.8-7.7) L 06/06/19 13:37 Sodium 142 mmol/L (137-145) 06/06/19 13:37 Potassium 4.3 mmol/L (3.6-5.0) 06/06/19 13:37 Chloride 103.1 mmol/L (98-107) 06/06/19 13:37 Carbon Dioxide 24 mmol/L (22-30) 06/06/19 13:37 Anion Gap 19 mmol/L 06/06/19 13:37 BUN 6 mg/dL (7-17) L 06/06/19 13:37 Creatinine 0.7 mg/dL (0.7-1.2) 06/06/19 13:37 Estimated GFR > 60 ml/min 06/06/19 13:37 BUN/Creatinine Ratio 9 % 06/06/19 13:37 Glucose 61 mg/dL (65-100) L 06/06/19 13:37 POC Glucose 104 (70-105) 06/05/19 17:10 Hemoglobin A1c 5.3 % (4-6) 06/06/19 13:37 Calcium 9.2 mg/dL (8.4-10.2) 06/06/19 13:37 Total Bilirubin < 0.20 mg/dL (0.1-1.2) 06/06/19 13:37 AST 13 units/L (5-40) 06/06/19 13:37 ALT 13 units/L (7-56) 06/06/19 13:37 Alkaline Phosphatase 56 units/L (35-129) 06/06/19 13:37 Total Protein 6.8 g/dL (6.3-8.2) 06/06/19 13:37 Albumin 4.1 g/dL (3.9-5) 06/06/19 13:37 Albumin/Globulin Ratio 1.5 % 06/06/19 13:37 Triglycerides 380 mg/dL (2-149) H 06/06/19 13:37 Cholesterol 177 mg/dL (50-199) 06/06/19 13:37 LDL Cholesterol Direct 56 mg/dL (50-130) 06/06/19 13:37 HDL Cholesterol 73 mg/dL (40-59) H 06/06/19 13:37 Cholesterol/HDL Ratio 2.42 % 06/06/19 13:37 Last Vital Signs Temp 97.9 F 06/06/19 22:00 Pulse 105 H 06/07/19 10:31 Resp 16 06/07/19 09:12 BP 105/72 06/07/19 10:31 Pulse Ox 98 06/07/19 09:12 Mental Status Exam - Vital signs Last Vital Signs Temp 97.9 F 06/06/19 22:00 Pulse 105 H 06/07/19 10:31 Resp 16 06/07/19 09:12 BP 105/72 06/07/19 10:31 Pulse Ox 98 06/07/19 09:12 - Exam Orientation: time, place, person Affect: depressed, anxious Mood: congruent with affect Thought content: other (No SI/HI) Thought Process: Intact Perceptions: none Speech: normal rate and pattern Concentration: focused Motor activity: normal Level of consciousness: alert Memory: Intact Sleep Symptoms: Difficulty Falling Asleep Interaction: cooperative
[2019-06-07] MEDS: DULoxetine 30 MG CAP PO SCH (13:38)
[2019-06-07] MEDS ORDERED: diphenhydrAMINE 25 MG CAP PO PRN (16:24)
[2019-06-07] MEDS: MIRTAZAPINE 15 MG TAB PO SCH (21:06)
[2019-06-07] MEDS: MELATONIN 5 MG TAB PO SCH (21:06)
[2019-06-07] MEDS: traZODone 100 MG TAB PO SCH (21:13)
[2019-06-07] MEDS: CYCLOBENZAPRINE 10 MG TAB PO PRN (22:13)
[2019-06-08] MEDS: THIAMINE 100 MG TAB PO SCH (09:57)
[2019-06-08] MEDS: lamoTRIgine 25 MG TAB PO SCH ×2 (09:57→21:42)
[2019-06-08] MEDS: ASPIRIN 81 MG TAB CHEW PO SCH (09:57)
[2019-06-08] MEDS: LORATADINE (NF) 10 MG TAB PO SCH (09:57)
[2019-06-08] MEDS: NICOTINE 21 MG/24 HR PATCH TD SCH (09:58)
[2019-06-08] MEDS: DULoxetine 30 MG CAP PO SCH (09:58)
[2019-06-08] MEDS: DOCUSATE SODIUM 100 MG CAP PO SCH ×2 (09:58→21:45)
[2019-06-08] MEDS: amLODIPine 10 MG TAB PO SCH (09:59)
[2019-06-08] MEDS: traMADol 50 MG TAB PO PRN (10:00)
--- NOTE | 2019-06-08 10:00 | Progress Note ---
Subjective Date of service: 06/08/19 Principal diagnosis: Schizoaffective disorder, bipolar type Subjective Comment: Nursing Report: Patient slept throughout the night, no distress noted. In my morning interview with the patient, the patient stated that she was in a good mood and getting there. The patient stated that she had an awesome sleep, but she didn't have much of an appetite due to her sinus infection, and back spasms. The patient stated that her thought were not clear , and she was having trouble focusing. The patient requested nicotine gum for help with smoking withdrawal. The patient has no thoughts of suicide, hears no voices, does not want to harm anyone, and does not fear being harmed. Objective - Criteria for Continued Treatment Criteria for Continued Treatment: Improving Level of Functioning, Stablizing Level of Functioning Assessment and Plan - Patient Problems (1) Schizoaffective disorder, bipolar type Current Visit: Yes Status: Acute (2) Cocaine use disorder, severe, dependence Current Visit: Yes Status: Acute (3) Alcohol use disorder, severe, dependence Current Visit: Yes Status: Acute Plan to address problem: Continue inpatient psychiatric evaluation, medication adjustment and close monitoring The patient's behavior, mood, sleep and appetite will be closely monitored. Patient will be enrolled in individual and group therapeutic sessions and encouraged to attend. Patient will be provided with a safe and structured environment. Patient's physical health needs will be addressed by the Hospitalist. Hospitalist Consulted Social Assessment will be completed and the Reproduction Specialist will work with patient and family to ensure a suitable and safe disposition Medication adjustment will be made as clinically indicated The patient agreed on the treatment plan, understood the risk, benefit, alternative treatment, potential consequence of no treatment, and gave informed consent. Medications and Allergies Allergies Allergy/AdvReac Type Severity Reaction Status Date / Time adhesive tape Allergy Rash Unverified 06/28/17 10:05 Latex, Natural Rubber Allergy Rash Verified 03/02/13 10:43 oxycodone HCl [From Percocet] Allergy Rash Verified 03/02/13 10:43 Home Medications Medication Instructions Recorded Confirmed Last Taken Type Amlodipine Besylate [Norvasc] 10 mg PO DAILY 03/02/13 06/06/19 05/06/14 History Cyclobenzaprine [Flexeril] 10 mg PO TID PRN 03/02/13 06/06/19 05/06/14 History Estrogens, Conjugated (Nf) 1.25 mg PO QDAY 03/02/13 06/06/19 05/06/14 History [Premarin] Loratadine [Claritin RAPDIS] 10 mg PO QDAY 03/02/13 06/06/19 05/06/14 History Albuterol Sulfate [Proventil HFA] 1 puff IH DAILY 04/29/14 06/06/19 05/06/14 History Citalopram [celeXA] 10 mg PO HS 04/29/14 06/06/19 05/06/14 History Fluticasone/Salmeterol [Advair 1 puff IH BID 04/29/14 06/06/19 05/06/14 History Diskus 100-50 mcg] lamoTRIgine [Lamotrigine ER] 100 mg PO DAILY 04/29/14 06/06/19 05/06/14 History traMADoL [Ultram 50 MG tab] 50 mg PO Q4HR PRN #20 tablet 04/06/16 06/06/19 Unknown Rx Aspirin [Aspirin BABY CHEW TAB] 81 mg PO QDAY #30 tab.chew 01/03/18 06/06/19 Unknown Rx Active Meds: Active Medications Acetaminophen (Tylenol) 1,000 mg PO Q6H PRN PRN Reason: Pain, Mild (1-3) Last Admin: 06/07/19 21:13 Dose: 1,000 mg Documented by: Albuterol (Proventil) 2.5 mg IH Q4HRT PRN PRN Reason: Shortness Of Breath Amlodipine Besylate (Amlodipine) 10 mg PO DAILY [facility] Last Admin: 06/07/19 10:31 Dose: 10 mg Documented by: Aspirin (Baby Aspirin) 81 mg PO QDAY [facility] Last Admin: 06/07/19 10:30 Dose: 81 mg Documented by: Budesonide 0.5 mg/ (Arformoterol Tartrate 15 mcg) 0 mg IH Q12HRT [facility] Cyclobenzaprine HCl (Flexeril) 10 mg PO TID PRN PRN Reason: Pain, Moderate (4-6) Last Admin: 06/07/19 22:13 Dose: 10 mg Documented by: Diphenhydramine HCl (Benadryl) 25 mg PO Q6H PRN PRN Reason: Itching Docusate Sodium (Colace) 100 mg PO BID [facility] Last Admin: 06/07/19 21:06 Dose: 100 mg Documented by: Duloxetine HCl (Cymbalta) 60 mg PO QDAY [facility] Last Admin: 06/07/19 13:38 Dose: 60 mg Documented by: Haloperidol Lactate (Haldol) 5 mg IM Q6H PRN PRN Reason: Agitation Lamotrigine (Lamictal) 25 mg PO BID [facility] Last Admin: 06/07/19 21:06 Dose: 25 mg Documented by: Loratadine (Claritin) 10 mg PO DAILY [facility] Last Admin: 06/07/19 10:30 Dose: 10 mg Documented by: Lorazepam (Ativan) 2 mg IM Q6H PRN PRN Reason: Agitation Melatonin (Melatonin) 5 mg PO QHS [facility] Last Admin: 06/07/19 21:06 Dose: 5 mg Documented by: Mirtazapine (Remeron) 15 mg PO QHS [facility] Last Admin: 06/07/19 21:06 Dose: 15 mg Documented by: Miscellaneous Medication (Estrogens, Conjugated (Nf)) 1.25 mg PO QDAY [facility] Nicotine (Habitrol) 21 mg TD QDAY [facility] Last Admin: 06/07/19 10:30 Dose: 21 mg Documented by: Thiamine HCl (Vitamin B-1) 200 mg PO QDAY [facility] Last Admin: 06/07/19 10:31 Dose: 200 mg Documented by: Tramadol HCl (Ultram) 50 mg PO Q4HR PRN PRN Reason: PAIN Last Admin: 06/06/19 18:43 Dose: 50 mg Documented by: Trazodone HCl (Desyrel) 50 mg PO QHS PRN PRN Reason: Insomnia Trazodone HCl (Desyrel) 100 mg PO QHS [facility] Last Admin: 06/07/19 21:13 Dose: 100 mg Documented by: Results - Results Labs/Vitals: Laboratory Last Values WBC 2.7 K/mm3 (4.5-11.0) L 06/06/19 13:37 RBC 4.76 M/mm3 (3.65-5.03) 06/06/19 13:37 Hgb 14.0 gm/dl (10.1-14.3) 06/06/19 13:37 Hct 41.8 % (30.3-42.9) 06/06/19 13:37 MCV 88 fl (79-97) 06/06/19 13:37 MCH 29 pg (28-32) 06/06/19 13:37 MCHC 33 % (30-34) 06/06/19 13:37 RDW 13.9 % (13.2-15.2) 06/06/19 13:37 Plt Count 209 K/mm3 (140-440) 06/06/19 13:37 Lymph % (Auto) 48.3 % (13.4-35.0) H 06/06/19 13:37 [place] % (Auto) 9.4 % (0.0-7.3) H 06/06/19 13:37 Eos % (Auto) 1.3 % (0.0-4.3) 06/06/19 13:37 Baso % (Auto) 1.2 % (0.0-1.8) 06/06/19 13:37 Lymph # 1.3 K/mm3 (1.2-5.4) 06/06/19 13:37 [place] # 0.3 K/mm3 (0.0-0.8) 06/06/19 13:37 Eos # 0.0 K/mm3 (0.0-0.4) 06/06/19 13:37 Baso # 0.0 K/mm3 (0.0-0.1) 06/06/19 13:37 Seg Neutrophils % 39.8 % (40.0-70.0) L 06/06/19 13:37 Seg Neutrophils # 1.1 K/mm3 (1.8-7.7) L 06/06/19 13:37 Sodium 142 mmol/L (137-145) 06/06/19 13:37 Potassium 4.3 mmol/L (3.6-5.0) 06/06/19 13:37 Chloride 103.1 mmol/L (98-107) 06/06/19 13:37 Carbon Dioxide 24 mmol/L (22-30) 06/06/19 13:37 Anion Gap 19 mmol/L 06/06/19 13:37 BUN 6 mg/dL (7-17) L 06/06/19 13:37 Creatinine 0.7 mg/dL (0.7-1.2) 06/06/19 13:37 Estimated GFR > 60 ml/min 06/06/19 13:37 BUN/Creatinine Ratio 9 % 06/06/19 13:37 Glucose 61 mg/dL (65-100) L 06/06/19 13:37 POC Glucose 104 (70-105) 06/05/19 17:10 Hemoglobin A1c 5.3 % (4-6) 06/06/19 13:37 Calcium 9.2 mg/dL (8.4-10.2) 06/06/19 13:37 Total Bilirubin < 0.20 mg/dL (0.1-1.2) 06/06/19 13:37 AST 13 units/L (5-40) 06/06/19 13:37 ALT 13 units/L (7-56) 06/06/19 13:37 Alkaline Phosphatase 56 units/L (35-129) 06/06/19 13:37 Total Protein 6.8 g/dL (6.3-8.2) 06/06/19 13:37 Albumin 4.1 g/dL (3.9-5) 06/06/19 13:37 Albumin/Globulin Ratio 1.5 % 06/06/19 13:37 Triglycerides 380 mg/dL (2-149) H 06/06/19 13:37 Cholesterol 177 mg/dL (50-199) 06/06/19 13:37 LDL Cholesterol Direct 56 mg/dL (50-130) 06/06/19 13:37 HDL Cholesterol 73 mg/dL (40-59) H 06/06/19 13:37 Cholesterol/HDL Ratio 2.42 % 06/06/19 13:37 Last Vital Signs Temp 98.0 F 06/08/19 07:42 Pulse 104 H 06/08/19 07:42 Resp 18 06/08/19 07:42 BP 126/86 06/08/19 07:42 Pulse Ox 100 06/08/19 07:42 Mental Status Exam - Vital signs Last Vital Signs Temp 98.0 F 06/08/19 07:42 Pulse 96 H 06/08/19 16:36 Resp 18 06/08/19 16:36 BP 126/86 06/08/19 09:59 Pulse Ox 100 06/08/19 07:42 - Exam Orientation: time, place, person Affect: normal Mood: appropriate, congruent with affect Thought content: other (No SI/HI) Thought Process: Intact, Goal Oriented Perceptions: none Speech: normal rate and pattern Concentration: distractible Motor activity: normal Level of consciousness: alert Memory: Intact Sleep Symptoms: None Interaction: cooperative
[2019-06-08] MEDS: CYCLOBENZAPRINE 10 MG TAB PO PRN ×2 (15:11→21:43)
[2019-06-08] MEDS: ACETAMINOPHEN 500 MG TAB PO PRN ×2 (15:12→21:43)
[2019-06-08] MEDS: MIRTAZAPINE 15 MG TAB PO SCH (21:42)
[2019-06-08] MEDS: MELATONIN 5 MG TAB PO SCH (21:42)
[2019-06-08] MEDS: traZODone 100 MG TAB PO SCH (21:43)
--- NOTE | 2019-06-09 10:55 | Progress Note ---
Subjective Date of service: 06/09/19 Principal diagnosis: Schizoaffective disorder, bipolar type Subjective Comment: In my morning interview with the patient, the patient stated that she was in a good mood. The patient stated that she had a good sleep, was thinking clearer, writing poems and felt more like herself. The patient has no thoughts of suicide, hears no voices, does not want to harm anyone, and does not fear being harmed. The patient stated she is not ready to go home yet. The risk for relapse to using drugs is very high at this time. Patient encouraged to participate in therapeutic group and individual sessions and address her drug use. Mental Status Exam Orientation: time, place, person Affect: normal Mood: appropriate, congruent with affect Thought content: other (No SI/HI) Thought Process: Intact, Goal Oriented Perceptions: none Speech: normal rate and pattern Concentration: Adequate Motor activity: normal Level of consciousness: alert Memory: Intact Sleep Symptoms: None Interaction: cooperative - Criteria for Continued Treatment Criteria for Continued Treatment: Improving Level of Functioning, Stablizing Level of Functioning Assessment and Plan - Patient Problems (1) Schizoaffective disorder, bipolar type Current Visit: Yes Status: Acute (2) Cocaine use disorder, severe, dependence Current Visit: Yes Status: Acute (3) Alcohol use disorder, severe, dependence Current Visit: Yes Status: Acute Plan to address problem: Continue inpatient psychiatric evaluation, medication adjustment and close monitoring The patient's behavior, mood, sleep and appetite will be closely monitored. Patient will be enrolled in individual and group therapeutic sessions and encouraged to attend. Patient will be provided with a safe and structured environment. Patient's physical health needs will be addressed by the Hospitalist. Hospitalist Consulted Social Assessment will be completed and the Rip/Mould Operator will work with patient and family to ensure a suitable and safe disposition Medication adjustment will be made as clinically indicated The patient agreed on the treatment plan, understood the risk, benefit, alternative treatment, potential consequence of no treatment, and gave informed consent. Medications and Allergies Allergies Allergy/AdvReac Type Severity Reaction Status Date / Time adhesive tape Allergy Rash Unverified 06/28/17 10:05 Latex, Natural Rubber Allergy Rash Verified 03/02/13 10:43 oxycodone HCl [From Percocet] Allergy Rash Verified 03/02/13 10:43 Home Medications Medication Instructions Recorded Confirmed Last Taken Type Amlodipine Besylate [Norvasc] 10 mg PO DAILY 03/02/13 06/06/19 05/06/14 History Cyclobenzaprine [Flexeril] 10 mg PO TID PRN 03/02/13 06/06/19 05/06/14 History Estrogens, Conjugated (Nf) 1.25 mg PO QDAY 03/02/13 06/06/19 05/06/14 History [Premarin] Loratadine [Claritin RAPDIS] 10 mg PO QDAY 03/02/13 06/06/19 05/06/14 History Albuterol Sulfate [Proventil HFA] 1 puff IH DAILY 04/29/14 06/06/19 05/06/14 History Citalopram [celeXA] 10 mg PO HS 04/29/14 06/06/19 05/06/14 History Fluticasone/Salmeterol [Advair 1 puff IH BID 04/29/14 06/06/19 05/06/14 History Diskus 100-50 mcg] lamoTRIgine [Lamotrigine ER] 100 mg PO DAILY 04/29/14 06/06/19 05/06/14 History traMADoL [Ultram 50 MG tab] 50 mg PO Q4HR PRN #20 tablet 04/06/16 06/06/19 Unknown Rx Aspirin [Aspirin BABY CHEW TAB] 81 mg PO QDAY #30 tab.chew 01/03/18 06/06/19 Unknown Rx Active Meds: Active Medications Acetaminophen (Tylenol) 1,000 mg PO Q6H PRN PRN Reason: Pain, Mild (1-3) Last Admin: 06/08/19 21:43 Dose: 1,000 mg Documented by: Albuterol (Proventil) 2.5 mg IH Q4HRT PRN PRN Reason: Shortness Of Breath Last Admin: 06/08/19 16:36 Dose: 2.5 mg Documented by: Amlodipine Besylate (Amlodipine) 10 mg PO DAILY [facility] Last Admin: 06/08/19 09:59 Dose: 10 mg Documented by: Arformoterol Tartrate (Brovana Nebu) 15 mcg IH Q12HRT [facility] Aspirin (Baby Aspirin) 81 mg PO QDAY [facility] Last Admin: 06/08/19 09:57 Dose: 81 mg Documented by: Budesonide (Pulmicort) 0.5 mg IH Q12HRT [facility] Cyclobenzaprine HCl (Flexeril) 10 mg PO TID PRN PRN Reason: Pain, Moderate (4-6) Last Admin: 06/08/19 21:43 Dose: 10 mg Documented by: Diphenhydramine HCl (Benadryl) 25 mg PO Q6H PRN PRN Reason: Itching Docusate Sodium (Colace) 100 mg PO BID [facility] Last Admin: 06/08/19 21:45 Dose: Not Given Documented by: Duloxetine HCl (Cymbalta) 60 mg PO QDAY [facility] Last Admin: 06/08/19 09:58 Dose: 60 mg Documented by: Haloperidol Lactate (Haldol) 5 mg IM Q6H PRN PRN Reason: Agitation Lamotrigine (Lamictal) 25 mg PO BID [facility] Last Admin: 06/08/19 21:42 Dose: 25 mg Documented by: Loratadine (Claritin) 10 mg PO DAILY [facility] Last Admin: 06/08/19 09:57 Dose: 10 mg Documented by: Lorazepam (Ativan) 2 mg IM Q6H PRN PRN Reason: Agitation Melatonin (Melatonin) 5 mg PO QHS [facility] Last Admin: 06/08/19 21:42 Dose: 5 mg Documented by: Mirtazapine (Remeron) 15 mg PO QHS [facility] Last Admin: 06/08/19 21:42 Dose: 15 mg Documented by: Miscellaneous Medication (Estrogens, Conjugated (Nf)) 1.25 mg PO QDAY [facility] Thiamine HCl (Vitamin B-1) 200 mg PO QDAY [facility] Last Admin: 06/08/19 09:57 Dose: 200 mg Documented by: Tramadol HCl (Ultram) 50 mg PO Q4HR PRN PRN Reason: PAIN Last Admin: 06/08/19 10:00 Dose: 50 mg Documented by: Trazodone HCl (Desyrel) 50 mg PO QHS PRN PRN Reason: Insomnia Trazodone HCl (Desyrel) 100 mg PO QHS [facility] Last Admin: 06/08/19 21:43 Dose: 100 mg Documented by: Results - Results Labs/Vitals: Laboratory Last Values WBC 2.7 K/mm3 (4.5-11.0) L 06/06/19 13:37 RBC 4.76 M/mm3 (3.65-5.03) 06/06/19 13:37 Hgb 14.0 gm/dl (10.1-14.3) 06/06/19 13:37 Hct 41.8 % (30.3-42.9) 06/06/19 13:37 MCV 88 fl (79-97) 06/06/19 13:37 MCH 29 pg (28-32) 06/06/19 13:37 MCHC 33 % (30-34) 06/06/19 13:37 RDW 13.9 % (13.2-15.2) 06/06/19 13:37 Plt Count 209 K/mm3 (140-440) 06/06/19 13:37 Lymph % (Auto) 48.3 % (13.4-35.0) H 06/06/19 13:37 [place] % (Auto) 9.4 % (0.0-7.3) H 06/06/19 13:37 Eos % (Auto) 1.3 % (0.0-4.3) 06/06/19 13:37 Baso % (Auto) 1.2 % (0.0-1.8) 06/06/19 13:37 Lymph # 1.3 K/mm3 (1.2-5.4) 06/06/19 13:37 [place] # 0.3 K/mm3 (0.0-0.8) 06/06/19 13:37 Eos # 0.0 K/mm3 (0.0-0.4) 06/06/19 13:37 Baso # 0.0 K/mm3 (0.0-0.1) 06/06/19 13:37 Seg Neutrophils % 39.8 % (40.0-70.0) L 06/06/19 13:37 Seg Neutrophils # 1.1 K/mm3 (1.8-7.7) L 06/06/19 13:37 Sodium 142 mmol/L (137-145) 06/06/19 13:37 Potassium 4.3 mmol/L (3.6-5.0) 06/06/19 13:37 Chloride 103.1 mmol/L (98-107) 06/06/19 13:37 Carbon Dioxide 24 mmol/L (22-30) 06/06/19 13:37 Anion Gap 19 mmol/L 06/06/19 13:37 BUN 6 mg/dL (7-17) L 06/06/19 13:37 Creatinine 0.7 mg/dL (0.7-1.2) 06/06/19 13:37 Estimated GFR > 60 ml/min 06/06/19 13:37 BUN/Creatinine Ratio 9 % 06/06/19 13:37 Glucose 61 mg/dL (65-100) L 06/06/19 13:37 POC Glucose 104 (70-105) 06/05/19 17:10 Hemoglobin A1c 5.3 % (4-6) 06/06/19 13:37 Calcium 9.2 mg/dL (8.4-10.2) 06/06/19 13:37 Total Bilirubin < 0.20 mg/dL (0.1-1.2) 06/06/19 13:37 AST 13 units/L (5-40) 06/06/19 13:37 ALT 13 units/L (7-56) 06/06/19 13:37 Alkaline Phosphatase 56 units/L (35-129) 06/06/19 13:37 Total Protein 6.8 g/dL (6.3-8.2) 06/06/19 13:37 Albumin 4.1 g/dL (3.9-5) 06/06/19 13:37 Albumin/Globulin Ratio 1.5 % 06/06/19 13:37 Triglycerides 380 mg/dL (2-149) H 06/06/19 13:37 Cholesterol 177 mg/dL (50-199) 06/06/19 13:37 LDL Cholesterol Direct 56 mg/dL (50-130) 06/06/19 13:37 HDL Cholesterol 73 mg/dL (40-59) H 06/06/19 13:37 Cholesterol/HDL Ratio 2.42 % 06/06/19 13:37 Last Vital Signs Temp 97.9 F 06/08/19 23:46 Pulse 91 H 06/08/19 23:46 Resp 18 06/08/19 23:46 BP 113/85 06/08/19 23:46 Pulse Ox 100 06/08/19 23:46
[2019-06-09] MEDS: THIAMINE 100 MG TAB PO SCH (11:15)
[2019-06-09] MEDS: DOCUSATE SODIUM 100 MG CAP PO SCH ×2 (11:17→21:37)
[2019-06-09] MEDS: DULoxetine 30 MG CAP PO SCH (11:17)
[2019-06-09] MEDS: LORATADINE (NF) 10 MG TAB PO SCH (11:18)
[2019-06-09] MEDS: lamoTRIgine 25 MG TAB PO SCH ×2 (11:19→21:37)
[2019-06-09] MEDS: ASPIRIN 81 MG TAB CHEW PO SCH (11:19)
[2019-06-09] MEDS: amLODIPine 10 MG TAB PO SCH (11:20)
[2019-06-09] MEDS: ACETAMINOPHEN 500 MG TAB PO PRN (12:00)
[2019-06-09] MEDS: BUDESONIDE 0.5 MG/2 ML NEBU IH SCH ×5 (15:37→21:04)
[2019-06-09] MEDS: ARFORMOTEROL 15 MCG/2 ML NEBU IH SCH ×5 (15:37→21:04)
[2019-06-09] MEDS: MELATONIN 5 MG TAB PO SCH (21:37)
[2019-06-09] MEDS: MIRTAZAPINE 15 MG TAB PO SCH (21:37)
[2019-06-09] MEDS: traZODone 100 MG TAB PO SCH (21:37)
[2019-06-09] MEDS: traMADol 50 MG TAB PO PRN (21:46)
--- NOTE | 2019-06-10 07:49 | Progress Note ---
Subjective Date of service: 06/10/19 Principal diagnosis: Schizoaffective disorder, bipolar type Subjective Comment: Shift report obtained on patient. Received in day room [id number]. Pleasant at contact. Request she will need all PRN medications tonight. She was told we will check and see what she can take. Denies SI, HI. No pain. No acute distress observed and none reported. Will continue to monitor for safety. In my morning interview with the patient, the patient stated that her mood was good . The patient has no thoughts of suicide, hears no voices, does not want to harm anyone, and does not fear being harmed. The patient stated she is still not ready to go home. Mental Status Exam Orientation: time, place, person Affect: normal Mood: appropriate, congruent with affect Thought content: other (No SI/HI) Thought Process: Intact, Goal Oriented Perceptions: none Speech: normal rate and pattern Concentration: Adequate Motor activity: normal Level of consciousness: alert Memory: Intact Sleep Symptoms: None Interaction: cooperative - Criteria for Continued Treatment Criteria for Continued Treatment: Improving Level of Functioning, Stablizing Level of Functioning Assessment and Plan - Patient Problems (1) Schizoaffective disorder, bipolar type Current Visit: Yes Status: Acute (2) Cocaine use disorder, severe, dependence Current Visit: Yes Status: Acute (3) Alcohol use disorder, severe, dependence Current Visit: Yes Status: Acute Plan to address problem: Continue inpatient psychiatric evaluation, medication adjustment and close monitoring The patient's behavior, mood, sleep and appetite will be closely monitored. Patient will be enrolled in individual and group therapeutic sessions and encouraged to attend. Patient will be provided with a safe and structured environment. Patient's physical health needs will be addressed by the Hospitalist. Hospitalist Consulted Social Assessment will be completed and the Light Armored Reconnaissance Officer will work with patient and family to ensure a suitable and safe disposition Medication adjustment will be made as clinically indicated The patient agreed on the treatment plan, understood the risk, benefit, alternative treatment, potential consequence of no treatment, and gave informed consent. Medications and Allergies Allergies Allergy/AdvReac Type Severity Reaction Status Date / Time adhesive tape Allergy Rash Unverified 06/28/17 10:05 Latex, Natural Rubber Allergy Rash Verified 03/02/13 10:43 oxycodone HCl [From Percocet] Allergy Rash Verified 03/02/13 10:43 Home Medications Medication Instructions Recorded Confirmed Last Taken Type Amlodipine Besylate [Norvasc] 10 mg PO DAILY 03/02/13 06/06/19 05/06/14 History Cyclobenzaprine [Flexeril] 10 mg PO TID PRN 03/02/13 06/06/19 05/06/14 History Estrogens, Conjugated (Nf) 1.25 mg PO QDAY 03/02/13 06/06/19 05/06/14 History [Premarin] Loratadine [Claritin RAPDIS] 10 mg PO QDAY 03/02/13 06/06/19 05/06/14 History Albuterol Sulfate [Proventil HFA] 1 puff IH DAILY 04/29/14 06/06/19 05/06/14 History Citalopram [celeXA] 10 mg PO HS 04/29/14 06/06/19 05/06/14 History Fluticasone/Salmeterol [Advair 1 puff IH BID 04/29/14 06/06/19 05/06/14 History Diskus 100-50 mcg] lamoTRIgine [Lamotrigine ER] 100 mg PO DAILY 04/29/14 06/06/19 05/06/14 History traMADoL [Ultram 50 MG tab] 50 mg PO Q4HR PRN #20 tablet 04/06/16 06/06/19 Unknown Rx Aspirin [Aspirin BABY CHEW TAB] 81 mg PO QDAY #30 tab.chew 01/03/18 06/06/19 Unknown Rx Active Meds: Active Medications Acetaminophen (Tylenol) 1,000 mg PO Q6H PRN PRN Reason: Pain, Mild (1-3) Last Admin: 06/09/19 12:00 Dose: 1,000 mg Documented by: Albuterol (Proventil) 2.5 mg IH Q4HRT PRN PRN Reason: Shortness Of Breath Last Admin: 06/08/19 16:36 Dose: 2.5 mg Documented by: Amlodipine Besylate (Amlodipine) 10 mg PO DAILY [facility] Last Admin: 06/09/19 11:20 Dose: 10 mg Documented by: Arformoterol Tartrate (Brovana Nebu) 15 mcg IH Q12HRT [facility] Last Admin: 06/09/19 21:04 Dose: 15 mcg Documented by: Aspirin (Baby Aspirin) 81 mg PO QDAY [facility] Last Admin: 06/09/19 11:19 Dose: 81 mg Documented by: Budesonide (Pulmicort) 0.5 mg IH Q12HRT [facility] Last Admin: 06/09/19 21:04 Dose: 0.5 mg Documented by: Cyclobenzaprine HCl (Flexeril) 10 mg PO TID PRN PRN Reason: Pain, Moderate (4-6) Last Admin: 06/08/19 21:43 Dose: 10 mg Documented by: Diphenhydramine HCl (Benadryl) 25 mg PO Q6H PRN PRN Reason: Itching Docusate Sodium (Colace) 100 mg PO BID [facility] Last Admin: 06/09/19 21:37 Dose: 100 mg Documented by: Duloxetine HCl (Cymbalta) 60 mg PO QDAY [facility] Last Admin: 06/09/19 11:17 Dose: 60 mg Documented by: Haloperidol Lactate (Haldol) 5 mg IM Q6H PRN PRN Reason: Agitation Lamotrigine (Lamictal) 25 mg PO BID [facility] Last Admin: 06/09/19 21:37 Dose: 25 mg Documented by: Loratadine (Claritin) 10 mg PO DAILY [facility] Last Admin: 06/09/19 11:18 Dose: 10 mg Documented by: Lorazepam (Ativan) 2 mg IM Q6H PRN PRN Reason: Agitation Melatonin (Melatonin) 5 mg PO QHS [facility] Last Admin: 06/09/19 21:37 Dose: 5 mg Documented by: Mirtazapine (Remeron) 15 mg PO QHS [facility] Last Admin: 06/09/19 21:37 Dose: 15 mg Documented by: Miscellaneous Medication (Estrogens, Conjugated (Nf)) 1.25 mg PO QDAY [facility] Thiamine HCl (Vitamin B-1) 200 mg PO QDAY [facility] Last Admin: 06/09/19 11:15 Dose: 200 mg Documented by: Tramadol HCl (Ultram) 50 mg PO Q4HR PRN PRN Reason: PAIN Last Admin: 06/09/19 21:46 Dose: 50 mg Documented by: Trazodone HCl (Desyrel) 50 mg PO QHS PRN PRN Reason: Insomnia Trazodone HCl (Desyrel) 100 mg PO QHS [facility] Last Admin: 06/09/19 21:37 Dose: 100 mg Documented by: Results - Results Labs/Vitals: Laboratory Last Values WBC 2.7 K/mm3 (4.5-11.0) L 06/06/19 13:37 RBC 4.76 M/mm3 (3.65-5.03) 06/06/19 13:37 Hgb 14.0 gm/dl (10.1-14.3) 06/06/19 13:37 Hct 41.8 % (30.3-42.9) 06/06/19 13:37 MCV 88 fl (79-97) 06/06/19 13:37 MCH 29 pg (28-32) 06/06/19 13:37 MCHC 33 % (30-34) 06/06/19 13:37 RDW 13.9 % (13.2-15.2) 06/06/19 13:37 Plt Count 209 K/mm3 (140-440) 06/06/19 13:37 Lymph % (Auto) 48.3 % (13.4-35.0) H 06/06/19 13:37 [place] % (Auto) 9.4 % (0.0-7.3) H 06/06/19 13:37 Eos % (Auto) 1.3 % (0.0-4.3) 06/06/19 13:37 Baso % (Auto) 1.2 % (0.0-1.8) 06/06/19 13:37 Lymph # 1.3 K/mm3 (1.2-5.4) 06/06/19 13:37 [place] # 0.3 K/mm3 (0.0-0.8) 06/06/19 13:37 Eos # 0.0 K/mm3 (0.0-0.4) 06/06/19 13:37 Baso # 0.0 K/mm3 (0.0-0.1) 06/06/19 13:37 Seg Neutrophils % 39.8 % (40.0-70.0) L 06/06/19 13:37 Seg Neutrophils # 1.1 K/mm3 (1.8-7.7) L 06/06/19 13:37 Sodium 142 mmol/L (137-145) 06/06/19 13:37 Potassium 4.3 mmol/L (3.6-5.0) 06/06/19 13:37 Chloride 103.1 mmol/L (98-107) 06/06/19 13:37 Carbon Dioxide 24 mmol/L (22-30) 06/06/19 13:37 Anion Gap 19 mmol/L 06/06/19 13:37 BUN 6 mg/dL (7-17) L 06/06/19 13:37 Creatinine 0.7 mg/dL (0.7-1.2) 06/06/19 13:37 Estimated GFR > 60 ml/min 06/06/19 13:37 BUN/Creatinine Ratio 9 % 06/06/19 13:37 Glucose 61 mg/dL (65-100) L 06/06/19 13:37 POC Glucose 104 (70-105) 06/05/19 17:10 Hemoglobin A1c 5.3 % (4-6) 06/06/19 13:37 Calcium 9.2 mg/dL (8.4-10.2) 06/06/19 13:37 Total Bilirubin < 0.20 mg/dL (0.1-1.2) 06/06/19 13:37 AST 13 units/L (5-40) 06/06/19 13:37 ALT 13 units/L (7-56) 06/06/19 13:37 Alkaline Phosphatase 56 units/L (35-129) 06/06/19 13:37 Total Protein 6.8 g/dL (6.3-8.2) 06/06/19 13:37 Albumin 4.1 g/dL (3.9-5) 06/06/19 13:37 Albumin/Globulin Ratio 1.5 % 06/06/19 13:37 Triglycerides 380 mg/dL (2-149) H 06/06/19 13:37 Cholesterol 177 mg/dL (50-199) 06/06/19 13:37 LDL Cholesterol Direct 56 mg/dL (50-130) 06/06/19 13:37 HDL Cholesterol 73 mg/dL (40-59) H 06/06/19 13:37 Cholesterol/HDL Ratio 2.42 % 06/06/19 13:37 Last Vital Signs Temp 97.9 F 06/09/19 20:07 Pulse 89 06/09/19 20:51 Resp 16 06/09/19 20:51 BP 116/87 06/09/19 20:07 Pulse Ox 97 06/09/19 20:07
[2019-06-10 09:42] VITALS: BP 100/72
[2019-06-10] MEDS: DULoxetine 30 MG CAP PO SCH (09:43)
[2019-06-10] MEDS: lamoTRIgine 25 MG TAB PO SCH (09:43)
[2019-06-10] MEDS: THIAMINE 100 MG TAB PO SCH (09:44)
[2019-06-10] MEDS: ASPIRIN 81 MG TAB CHEW PO SCH (09:44)
[2019-06-10] MEDS: DOCUSATE SODIUM 100 MG CAP PO SCH (09:44)
[2019-06-10] MEDS: amLODIPine 10 MG TAB PO SCH (09:44)
[2019-06-10] MEDS: LORATADINE (NF) 10 MG TAB PO SCH (09:45)
[2019-06-10] MEDS: traMADol 50 MG TAB PO PRN (09:48)
--- NOTE | 2019-06-10 10:26 | Discharge Summary ---
Providers - Providers Date of Admission: 06/05/19 11:42 Date of discharge: 06/10/19 Attending physician: NATE RAMAN MD 06/05/19 10:15 Consult to Physician [CONS] Routine Comment: Consulting Provider: RAVI SERVIN Physician Instructions: Reason For Exam: Medical management of Geripsych patient Primary care physician: MACHINE SHOP INSPECTOR Hospitalization Reason for admission: Suicidal Condition: Good Hospital course: The patient was provided inpatient psychiatric treatment with safe and supportive environment, group/individual therapy, psychiatric medication, medication adjustment, adverse effect monitor, medical evaluation, medical treatment, social service assessment, social support meeting, placement assessment and psycho-education. The patients mood, cognition, behavior, motivation, compliance to treatment and appreciation on family/social support are improved and stabilized. At the time of discharge, the patient had no suicidal ideas, no homicidal ideas, no aggressive thoughts, no endangering behavior and no debilitating adverse effects. The patient agreed on the treatment plan, understood the risk, benefit, alternative treatment, potential consequence of no treatment, and gave informed consent. Disposition: DC- TO HOME OR SELFCARE Allergies/Adverse Reactions: Allergies adhesive tape Allergy (Unverified 06/28/17 10:05) Rash Latex, Natural Rubber Allergy (Verified 03/02/13 10:43) Rash oxycodone HCl [From Percocet] Allergy (Verified 03/02/13 10:43) Rash Vital Signs: Last Vital Signs Temp 98.0 F 06/10/19 09:34 Pulse 98 H 06/10/19 09:44 Resp 17 06/10/19 09:34 BP 100/72 06/10/19 09:44 Pulse Ox 99 06/10/19 09:34 Last Lab: Laboratory Last Values WBC 2.7 K/mm3 (4.5-11.0) L 06/06/19 13:37 RBC 4.76 M/mm3 (3.65-5.03) 06/06/19 13:37 Hgb 14.0 gm/dl (10.1-14.3) 06/06/19 13:37 Hct 41.8 % (30.3-42.9) 06/06/19 13:37 MCV 88 fl (79-97) 06/06/19 13:37 MCH 29 pg (28-32) 06/06/19 13:37 MCHC 33 % (30-34) 06/06/19 13:37 RDW 13.9 % (13.2-15.2) 06/06/19 13:37 Plt Count 209 K/mm3 (140-440) 06/06/19 13:37 Lymph % (Auto) 48.3 % (13.4-35.0) H 06/06/19 13:37 [place] % (Auto) 9.4 % (0.0-7.3) H 06/06/19 13:37 Eos % (Auto) 1.3 % (0.0-4.3) 06/06/19 13:37 Baso % (Auto) 1.2 % (0.0-1.8) 06/06/19 13:37 Lymph # 1.3 K/mm3 (1.2-5.4) 06/06/19 13:37 [place] # 0.3 K/mm3 (0.0-0.8) 06/06/19 13:37 Eos # 0.0 K/mm3 (0.0-0.4) 06/06/19 13:37 Baso # 0.0 K/mm3 (0.0-0.1) 06/06/19 13:37 Seg Neutrophils % 39.8 % (40.0-70.0) L 06/06/19 13:37 Seg Neutrophils # 1.1 K/mm3 (1.8-7.7) L 06/06/19 13:37 Sodium 142 mmol/L (137-145) 06/06/19 13:37 Potassium 4.3 mmol/L (3.6-5.0) 06/06/19 13:37 Chloride 103.1 mmol/L (98-107) 06/06/19 13:37 Carbon Dioxide 24 mmol/L (22-30) 06/06/19 13:37 Anion Gap 19 mmol/L 06/06/19 13:37 BUN 6 mg/dL (7-17) L 06/06/19 13:37 Creatinine 0.7 mg/dL (0.7-1.2) 06/06/19 13:37 Estimated GFR > 60 ml/min 06/06/19 13:37 BUN/Creatinine Ratio 9 % 06/06/19 13:37 Glucose 61 mg/dL (65-100) L 06/06/19 13:37 POC Glucose 104 (70-105) 06/05/19 17:10 Hemoglobin A1c 5.3 % (4-6) 06/06/19 13:37 Calcium 9.2 mg/dL (8.4-10.2) 06/06/19 13:37 Total Bilirubin < 0.20 mg/dL (0.1-1.2) 06/06/19 13:37 AST 13 units/L (5-40) 06/06/19 13:37 ALT 13 units/L (7-56) 06/06/19 13:37 Alkaline Phosphatase 56 units/L (35-129) 06/06/19 13:37 Total Protein 6.8 g/dL (6.3-8.2) 06/06/19 13:37 Albumin 4.1 g/dL (3.9-5) 06/06/19 13:37 Albumin/Globulin Ratio 1.5 % 06/06/19 13:37 Triglycerides 380 mg/dL (2-149) H 06/06/19 13:37 Cholesterol 177 mg/dL (50-199) 06/06/19 13:37 LDL Cholesterol Direct 56 mg/dL (50-130) 06/06/19 13:37 HDL Cholesterol 73 mg/dL (40-59) H 06/06/19 13:37 Cholesterol/HDL Ratio 2.42 % 06/06/19 13:37 Core Measure Documentation - Palliative Care Palliative Care/ Comfort Measures: Not Applicable - Core Measures Any of the following diagnoses?: none Exam - Constitutional Vitals: Temp Pulse Resp BP Pulse Ox 98.0 F 98 H 17 100/72 99 06/10/19 09:34 06/10/19 09:44 06/10/19 09:34 06/10/19 09:44 06/10/19 09:34 General appearance: Present: no acute distress - EENT Eyes: Present: PERRL, EOM intact ENT: hearing intact, clear oral mucosa - Neck Neck: Present: supple, normal ROM - Respiratory Respiratory effort: normal Plan Activity: advance as tolerated Weight Bearing Status: Weight Bear as Tolerated Care Plan Goals: Maintain good and stable mental health Plan of Treatment: Take medications as prescribed Health Concerns: Substance abuse Assessment: Schizoaffective disorder Follow up with: PRIMARY CARE, [Primary Care Provider] - 7 Days Prescriptions: traZODone [Desyrel] 100 mg PO QHS #30 tablet Melatonin [Melatonin 5MG TAB] 5 mg PO QHS #30 tablet Mirtazapine [Remeron 15mg TAB] 15 mg PO QHS #30 tablet diphenhydrAMINE [Benadryl CAP] 25 mg PO Q6H PRN #90 capsule PRN Reason: Itching DULoxetine [Cymbalta] 60 mg PO QDAY #60 capsule lamoTRIgine [LaMICtal] 50 mg PO BID #120 tablet
[2019-06-10] MEDS: BUDESONIDE 0.5 MG/2 ML NEBU IH SCH (11:05)
[2019-06-10] MEDS: ARFORMOTEROL 15 MCG/2 ML NEBU IH SCH (11:06)
== END 2019-06-10 13:10 | disposition home or self-care (01) | DRG 885 ==
LOC: UNDOADMIN 09:26 → 3A 09:26 → 5A 11:42
PROVIDERS: ADMIT Psychiatry & Neurology Psychiatry; ATTEND Psychiatry & Neurology Psychiatry
DX: F25.0 Schizoaffective disorder, bipolar type (principal); F10.288 Alcohol dependence with other alcohol-induced disorder; F14.288 Cocaine dependence with other cocaine-induced disorder; G89.4 Chronic pain syndrome; D57.1 Sickle-cell disease without crisis; Y90.9 Presence of alcohol in blood, level not specified; I10 Essential (primary) hypertension; Z72.0 Tobacco use; Z91.040 Latex allergy status; Z88.5 Allergy status to narcotic agent; Z91.048 Other nonmedicinal substance allergy status; Z79.82 Long term (current) use of aspirin; Z79.899 Other long term (current) drug therapy; Z71.6 Tobacco abuse counseling
CPT/HCPCS: 36415; 80053; 80061; 80307; 80320; 81001; 82962; 83036; 85025; 94640; G0378; G0480; J1630

== ENCOUNTER 2019-09-14 10:26 | Emergency (ER) | payer MEDICARE, OTHER ==
[2019-09-14 10:32] VITALS: BP 98/54
--- NOTE | 2019-09-14 11:23 | Emergency Department Report ---
- General Chief Complaint: Upper Respiratory Infection Stated Complaint: SINUS INFECTION Time Seen by Provider: 09/14/19 11:18 Source: patient Mode of arrival: Ambulatory Limitations: No Limitations - History of Present Illness Initial Comments: CC: "I have a sinus infection." HPI: 53-year-old female with history of SLE, connective tissue disease, bipolar disorder, schizophrenia, asthma presents with 2 weeks of nasal congestion facial pressure productive cough with brownish sputum. Positive tobacco abuse. She also has dysuria. She is concerned for UTI. She states that her heart rate is always high. MD Complaint: cough, nasal congestion -: Gradual, week(s) (2) Severity: moderate Consistency: constant Improves With: nothing Worsens With: nothing Associated Symptoms: myalgias, cough - Related Data Home Medications Medication Instructions Recorded Confirmed Last Taken Amlodipine Besylate [Norvasc] 10 mg PO DAILY 03/02/13 06/06/19 05/06/14 Cyclobenzaprine [Flexeril 10 MG 10 mg PO TID PRN 03/02/13 06/06/19 05/06/14 TAB] Estrogens, Conjugated (Nf) 1.25 mg PO QDAY 03/02/13 06/06/19 05/06/14 [Premarin (Nf)] Loratadine [Claritin RAPDIS] 10 mg PO QDAY 03/02/13 06/06/19 05/06/14 Albuterol Sulfate [Proventil HFA] 1 puff IH DAILY 04/29/14 06/06/19 05/06/14 Fluticasone/Salmeterol [Advair 1 puff IH BID 04/29/14 06/06/19 05/06/14 Diskus 100-50 mcg] Previous Rx's Medication Instructions Recorded Last Taken Type traMADoL [Ultram 50 MG tab] 50 mg PO Q4HR PRN #20 tablet 04/06/16 Unknown Rx Aspirin [Aspirin BABY CHEW TAB] 81 mg PO QDAY #30 tab.chew 01/03/18 Unknown Rx DULoxetine [Cymbalta] 60 mg PO QDAY #60 capsule 06/10/19 Unknown Rx Melatonin [Melatonin 5MG TAB] 5 mg PO QHS #30 tablet 06/10/19 Unknown Rx Mirtazapine [Remeron 15mg TAB] 15 mg PO QHS #30 tablet 06/10/19 Unknown Rx diphenhydrAMINE [Benadryl CAP] 25 mg PO Q6H PRN #90 capsule 06/10/19 Unknown Rx lamoTRIgine [LaMICtal] 50 mg PO BID #120 tablet 06/10/19 Unknown Rx traZODone [Desyrel] 100 mg PO QHS #30 tablet 06/10/19 Unknown Rx Amoxicillin/K Clav Tab [Augmentin 1 tab PO Q12HR 10 Days #20 tab 09/14/19 Unknown Rx 875 mg] Allergies Allergy/AdvReac Type Severity Reaction Status Date / Time adhesive tape Allergy Rash Unverified 06/28/17 10:05 Latex, Natural Rubber Allergy Rash Verified 03/02/13 10:43 oxycodone HCl [From Percocet] Allergy Rash Verified 03/02/13 10:43 ED Review of Systems ROS: Stated complaint: SINUS INFECTION Other details as noted in HPI Comment: All other systems reviewed and negative Constitutional: fever, malaise ENT: congestion Respiratory: cough Genitourinary: dysuria ED Past Medical Hx - Past Medical History Previous Medical History?: Yes Hx Hypertension: Yes Hx Congestive Heart Failure: No Hx Diabetes: No Hx Renal Disease: No Hx Sickle Cell Disease: Yes (trait) Hx Arthritis: No Hx Seizures: Yes Hx Psychiatric Treatment: Yes (bipolar/schizo) Hx Asthma: Yes Hx Dementia: No Additional medical history: chronic pain - Surgical History Past Surgical History?: Yes Hx Cholecystectomy: No Hx Appendectomy: No Additional Surgical History: left buttick, nerve stimulator implant. L4-5, and S1 fusion - Social History Smoking Status: Current Every Day Smoker Substance Use Type: Alcohol - Medications Home Medications: Home Medications Medication Instructions Recorded Confirmed Last Taken Type Amlodipine Besylate [Norvasc] 10 mg PO DAILY 03/02/13 06/06/19 05/06/14 History Cyclobenzaprine [Flexeril 10 MG 10 mg PO TID PRN 03/02/13 06/06/19 05/06/14 History TAB] Estrogens, Conjugated (Nf) 1.25 mg PO QDAY 03/02/13 06/06/19 05/06/14 History [Premarin (Nf)] Loratadine [Claritin RAPDIS] 10 mg PO QDAY 03/02/13 06/06/19 05/06/14 History Albuterol Sulfate [Proventil HFA] 1 puff IH DAILY 04/29/14 06/06/19 05/06/14 History Fluticasone/Salmeterol [Advair 1 puff IH BID 04/29/14 06/06/19 05/06/14 History Diskus 100-50 mcg] traMADoL [Ultram 50 MG tab] 50 mg PO Q4HR PRN #20 tablet 04/06/16 06/06/19 Unknown Rx Aspirin [Aspirin BABY CHEW TAB] 81 mg PO QDAY #30 tab.chew 01/03/18 06/06/19 Unknown Rx DULoxetine [Cymbalta] 60 mg PO QDAY #60 capsule 06/10/19 Unknown Rx Melatonin [Melatonin 5MG TAB] 5 mg PO QHS #30 tablet 06/10/19 Unknown Rx Mirtazapine [Remeron 15mg TAB] 15 mg PO QHS #30 tablet 06/10/19 Unknown Rx diphenhydrAMINE [Benadryl CAP] 25 mg PO Q6H PRN #90 capsule 06/10/19 Unknown Rx lamoTRIgine [LaMICtal] 50 mg PO BID #120 tablet 06/10/19 Unknown Rx traZODone [Desyrel] 100 mg PO QHS #30 tablet 06/10/19 Unknown Rx Amoxicillin/K Clav Tab [Augmentin 1 tab PO Q12HR 10 Days #20 tab 09/14/19 Unknown Rx 875 mg] ED Physical Exam - General Limitations: No Limitations General appearance: alert, in no apparent distress - Head Head exam: Present: atraumatic, normocephalic - Eye Eye exam: Present: normal appearance - ENT ENT exam: Present: mucous membranes moist - Neck Neck exam: Present: normal inspection, full ROM - Respiratory Respiratory exam: Present: normal lung sounds bilaterally. Absent: respiratory distress, wheezes, rales, rhonchi - Cardiovascular Cardiovascular Exam: Present: normal rhythm, tachycardia, normal heart sounds. Absent: systolic murmur, diastolic murmur, rubs, gallop - GI/Abdominal GI/Abdominal exam: Present: soft, normal bowel sounds. Absent: distended, tenderness, guarding, rebound - Extremities Exam Extremities exam: Present: normal inspection - Back Exam Back exam: Present: normal inspection - Neurological Exam Neurological exam: Present: alert, oriented X3 - Psychiatric Psychiatric exam: Present: normal affect, normal mood - Skin Skin exam: Present: warm, dry, intact, normal color. Absent: rash ED Course Vital Signs 09/14/19 10:31 Temperature 99 F Pulse Rate 121 H Respiratory 20 Rate Blood Pressure 98/54 [Right] O2 Sat by Pulse 98 Oximetry ED Medical Decision Making - Radiology Data Radiology results: report reviewed Chest radiographs obtained no acute findings according to radiology impression - Medical Decision Making 53 yo female presents with fever nasal congestion productive cough dysuria. Will treat for bronchitis acute. Antibiotics are indicated with history of tobacco abuse. I will preemptively cover for UTI in the setting. Repeat blood pressure 109/70 repeat heart rate 113 bpm with fever. Do not suspect sepsis, or bacteremia. Augmentin prescribed to cover both acute sinusitis and UTI chest radiograph without evidence of pneumonia Critical care attestation.: If time is entered above; I have spent that time in minutes in the direct care of this critically ill patient, excluding procedure time. ED Disposition Clinical Impression: Acute sinusitis, Urinary tract infection, Acute bronchitis Disposition: DC-01 TO HOME OR SELFCARE Is pt being admited?: No Does the pt Need Aspirin: No Condition: Stable Instructions: Acute Bronchitis (ED) Prescriptions: Amoxicillin/K Clav Tab [Augmentin 875 mg] 1 tab PO Q12HR 10 Days #20 tab Referrals: CORINA DIAZ MD [Staff Physician] - 3-5 Days
--- NOTE | 2019-09-14 11:46 | XRay Report ---
CHEST 2 VIEWS INDICATION: cough productive sputum. COMPARISON: 01/03/2018. FINDINGS: Support devices: None. Heart: Within normal limits. Lungs/Pleura: No acute air space or interstitial disease. No significant pleural effusion. IMPRESSION: No acute findings. Signer Name: Navi Alexander MD Signed: 09/14/2019 11:42 AM Workstation Name: [id number]
[2019-09-14] MEDS ORDERED: AMOXICILLIN/K CLAV 875/125MG TAB PO ONE (11:58)
== END 2019-09-14 13:22 | disposition home or self-care (01) ==
LOC: ED 10:26
DX: J01.90 Acute sinusitis, unspecified (principal); J20.9 Acute bronchitis, unspecified; N39.0 Urinary tract infection, site not specified; F25.0 Schizoaffective disorder, bipolar type; J45.909 Unspecified asthma, uncomplicated; I10 Essential (primary) hypertension; F17.200 Nicotine dependence, unspecified, uncomplicated; Z91.040 Latex allergy status; Z91.048 Other nonmedicinal substance allergy status; Z88.8 Allergy status to other drugs, medicaments and biological substances; Z79.899 Other long term (current) drug therapy; Z98.890 Other specified postprocedural states; Z86.69 Personal history of other diseases of the nervous system and sense organs
CPT/HCPCS: 71046; 99283